=== PATIENT | female | born 1940 | race Caucasian/White ===

== ENCOUNTER → 2018-08-07 | Outpatient (CLI) | payer MEDICARE, BC ==
[2018-08-07 15:25] LABS: HCT 46.2 % (34.0-46.0); HGB 15.1 gm/dL (11.4-16.0); MCHC 32.6 g/dL (31.0-37.0); Mean Platelet Volume 7.3; Platelet Count 284 k/uL (150-450); RBC 5.19 m/uL (3.80-5.40); RDW 15.1 % (11.5-15.5)
[2018-08-07 15:34] LABS: Potassium 4.6 mmol/L (3.5-5.1)
== END | disposition home or self-care (01) ==
LOC: LABPAT 14:19
PROVIDERS: ATTEND Surgery
DX: Z01.812 Encounter for preprocedural laboratory examination (principal); Z01.818 Encounter for other preprocedural examination; K57.90 Diverticulosis of intestine, part unspecified, without perforation or abscess without bleeding
CPT/HCPCS: 36415; 80051; 85027; 86850; 86900; 86901; 93005

== ENCOUNTER 2018-08-14 06:56 | Day surgery (SDC) | payer MEDICARE, BC ==
[~2018-08-14 06:56] MED LIST: LACTATED RINGERS 1,000 ML IV SCH; LIDOCAINE 1% 20 ML VIAL (10MG/ML) FOR IV START INTRADERMA PRN
[2018-08-14 07:14] VITALS: TEMP 97.9
[2018-08-14] MEDS ORDERED: LACTATED RINGERS 1,000 ML IV ONE ×2 (07:17)
[2018-08-14] MEDS ORDERED: LIDOCAINE 1% INJ 10MG/ML (20 ML MDV) ONE (07:48)
[2018-08-14] MEDS ORDERED: PROPOFOL 10 MG/ML 20 ML VIAL IV ONE (07:48)
--- NOTE | 2018-08-14 07:54 | P.GSHP ---
History of Present Illness H&P Date: 08/14/18 Chief Complaint: History of perforated diverticulitis This is a 69-year-old female who presents today for colonoscopy. Patient's previous history of perforated diverticulitis. She is scheduled for low anterior resection tomorrow. Past Medical History Past Medical History: Hypertension, Liver Disease Additional Past Medical History / Comment(s): RECENT BOUTS OF DIVERTICULITIES WITH RUPTURE & CT SCAN DRAINAGE. FEET TROUBLE (SPURS, BUNIONS) History of Any Multi-Drug Resistant Organisms: C-DIFF Date of last positivie culture/infection: APRIL 2018: NO CULTURE RESULTS, BUT PER DR. LANDEROS AND PER PATIENT. MDRO Source:: STOOL Past Surgical History: Appendectomy, Hysterectomy Additional Past Surgical History / Comment(s): PICC LINE FOR ANTIBIOTICS FOR DIVERTICULTIS. FEET SURGERY (SPURS) Past Anesthesia/Blood Transfusion Reactions: Postoperative Nausea & Vomiting (PONV) Past Psychological History: No Psychological Hx Reported Smoking Status: Former smoker Past Alcohol Use History: None Reported Additional Past Alcohol Use History / Comment(s): QUIT JUNE 27, 2018. SMOKED FOR 50 YEARS, 1.5 PPD. Past Drug Use History: None Reported - Past Family History Mother Family Medical History: Cancer Brother(s) Family Medical History: Cancer Medications and Allergies Home Medications Medication Instructions Recorded Confirmed Type Albuterol Nebulized [Ventolin 2.5 mg INHALATION RT-Q6H PRN 05/24/18 08/09/18 History Nebulized] Chlorthalidone 25 mg PO QAM 05/24/18 08/09/18 History Valsartan [Diovan] 160 mg PO BID 05/24/18 08/09/18 History traMADol HCL [traMADol HCL ER] 100 mg PO BID PRN 08/09/18 08/09/18 History Allergies Allergy/AdvReac Type Severity Reaction Status Date / Time No Known Allergies Allergy Verified 08/09/18 11:19 Surgical - Exam Vital Signs Temp Pulse Resp BP Pulse Ox 97.9 F 72 22 151/76 97 08/14/18 07:13 08/14/18 07:13 08/14/18 07:13 08/14/18 07:13 08/14/18 07:13 - General well developed, well nourished, no distress - Eyes PERRL - ENT normal pinna - Neck no masses - Respiratory normal expansion - Cardiovascular Rhythm: regular - Abdomen Abdomen: soft, non tender Assessment and Plan Assessment: History of perforated diverticula is. We'll perform colonoscopy.
--- NOTE | 2018-08-14 08:03 | P.OP ---
Date of Procedure: 08/14/18 Preoperative Diagnosis: Perforated diverticulitis Postoperative Diagnosis: Severe diverticulosis of sigmoid colon Rectal polyp Procedure(s) Performed: Colonoscopy Anesthesia: SELIN Surgeon: Cedrick Licea Pathology: other (Rectal polyp) Condition: stable Disposition: PACU Description of Procedure: The patient's placed on the endoscopy table in the lateral position. She received IV sedation. Digital rectal exam was performed which revealed no abnormalities. The flexible colonoscope was then placed patient anus and passed throughout the colon. Scope could not be passed beyond the sigmoid colon secondary to a very inflamed and scarred sigmoid colon. There was evidence of extensive diverticulosis.. Due to her previous history of perforated diverticulitis it was decided not to advance the scope to prevent injury to the colon. Scope was then withdrawn. In the rectum there was a sessile polyp. This removed with the cold forcep. Scope was withdrawn from patient.
[2018-08-14 08:10] VITALS: RESP 18
[2018-08-14 08:32] VITALS: BP 155/80; PULSE 66
== END 2018-08-14 08:37 | disposition home or self-care (01) ==
LOC: ORWHC2ENDO 06:56
PROVIDERS: ATTEND Surgery
DX: K57.30 Diverticulosis of large intestine without perforation or abscess without bleeding (principal); K62.1 Rectal polyp; I10 Essential (primary) hypertension; J45.909 Unspecified asthma, uncomplicated; K76.9 Liver disease, unspecified; Z87.891 Personal history of nicotine dependence; Z79.891 Long term (current) use of opiate analgesic; Z79.899 Other long term (current) drug therapy; Z90.710 Acquired absence of both cervix and uterus; Z80.9 Family history of malignant neoplasm, unspecified
CPT/HCPCS: 45331; 88305; J2001; J2704

== ENCOUNTER 2018-08-15 13:00 | Inpatient (IN) | payer MEDICARE, BC ==
--- NOTE | 2018-08-15 12:43 | P.GSHP ---
History of Present Illness H&P Date: 08/15/18 Chief Complaint: Diverticulitis This is a 69-year-old female with history of perforated diverticula is. Patient presents today for low anterior section. Patient aware the risk of colostomy. Past Medical History Past Medical History: Hypertension, Renal Disease Additional Past Medical History / Comment(s): CURRENT: SEVERAL BOUTS OF DIVERTICULITIS WITH RUPTURE AND CT DRAINAGE. (HAS BEEN AT [facility] AND [facility]). Right kidney stenosis. HISTORY OF "FEET" PROBLEM, BUNION. History of Any Multi-Drug Resistant Organisms: C-DIFF Date of last positivie culture/infection: APRIL 2018: NO BLOOD CULTURE, BUT MENTIONED IN DR. LANDEROS AND PER PATIENT. MDRO Source:: STOOL Past Surgical History: Appendectomy, Hysterectomy Additional Past Surgical History / Comment(s): PICC LINE FOR ANTIBIOTICS FOR DIVERTICULITIS. FEET SURGERY (SPURS). Past Anesthesia/Blood Transfusion Reactions: Postoperative Nausea & Vomiting (PONV) Past Psychological History: No Psychological Hx Reported Smoking Status: Former smoker Past Alcohol Use History: None Reported Additional Past Alcohol Use History / Comment(s): STOPPED SMOKING JUNE 27, 2018 SHE HAD A RESP INFECTION AND COULD NOT BREATH. SMOKED FOR OVER 50 YEARS, 1.5 PPD. Past Drug Use History: None Reported - Past Family History Mother Family Medical History: Cancer Brother(s) Family Medical History: Cancer Medications and Allergies Home Medications Medication Instructions Recorded Confirmed Type Albuterol Nebulized [Ventolin 2.5 mg INHALATION RT-Q6H PRN 05/24/18 08/15/18 History Nebulized] Chlorthalidone 25 mg PO QAM 05/24/18 08/15/18 History Valsartan [Diovan] 160 mg PO BID 05/24/18 08/15/18 History traMADol HCL [traMADol HCL ER] 100 mg PO BID PRN 08/09/18 08/15/18 History Allergies Allergy/AdvReac Type Severity Reaction Status Date / Time No Known Allergies Allergy Verified 08/15/18 11:18 Surgical - Exam Vital Signs Temp Pulse Resp BP Pulse Ox 98.6 F 75 16 156/75 96 08/15/18 11:23 08/15/18 11:23 08/15/18 11:23 08/15/18 11:23 08/15/18 11:23 - General well developed, well nourished, no distress - Eyes PERRL - ENT normal pinna - Neck no masses - Respiratory normal expansion - Cardiovascular Rhythm: regular - Abdomen Mild left lower quadrant tenderness Abdomen: soft Assessment and Plan Assessment: Diverticulitis We'll perform a low anterior resection.
[~2018-08-15 13:00] MED LIST changes: +ALVIMOPAN 12 MG CAPSULE PO ONE; +HEPARIN SODIUM,PORCINE 5,000 UNIT/ML 1 ML VIAL SQ ONE; +LACTATED RINGERS 1,000 ML IV ONE; -LACTATED RINGERS 1,000 ML IV SCH; +LIDOCAINE 1% 20 ML VIAL (10MG/ML) FOR IV START INTRADERMA ONE; -LIDOCAINE 1% 20 ML VIAL (10MG/ML) FOR IV START INTRADERMA PRN; +MIDAZOLAM (PF) 2 MG/2 ML VIAL IV ONE; +ONDANSETRON 4 MG/2 ML VIAL IVP ONE; +ceFAZolin IN SWFI 2 GM/20 ML SYRINGE IVP ONE; +metroNIDAZOLE-NS PMX 500 MG in SALINE 1 100ML.BAG IVPB ONE
[2018-08-15] MEDS ORDERED: ePHEDrine SULFATE/0.9% NACL/PF 50 MG/5 ML SYRINGE IV ONE (13:09)
[2018-08-15] MEDS ORDERED: METOPROLOL TARTRATE 5 MG/5 ML VIAL IVP ONE (13:09)
[2018-08-15] MEDS ORDERED: ROCURONIUM BROMIDE 10 MG/ML 10 ML VIAL IV ONE (13:09)
[2018-08-15] MEDS ORDERED: hydrALAZINE HCL 20 MG/ML 1 ML VIAL ONE (13:09)
[2018-08-15] MEDS ORDERED: SUCCINYLCHOLINE CHLORIDE 100 MG/5 ML SYR IV ONE (13:09)
[2018-08-15] MEDS ORDERED: PROPOFOL 10 MG/ML 20 ML VIAL IV ONE (13:09)
[2018-08-15] MEDS ORDERED: MIDAZOLAM 2 MG/2 ML VIAL ONE (13:09)
[2018-08-15] MEDS ORDERED: GLYCOPYRROLATE 0.2 MG/ML 2 ML VIAL ONE (13:09)
[2018-08-15] MEDS ORDERED: LIDOCAINE 1% INJ 10MG/ML (20 ML MDV) ONE (13:09)
[2018-08-15] MEDS ORDERED: fentaNYL (PF) 50 MCG/ML 2 ML AMP ONE (13:09)
[2018-08-15] MEDS ORDERED: NEOSTIGMINE 1 MG/ML 10 ML VIAL ONE (13:09)
[2018-08-15] MEDS ORDERED: LACTATED RINGERS 1,000 ML IV ONE (14:00)
[2018-08-15] MEDS ORDERED: BENZOCAINE/MENTHOL LOZENG 1 EACH LOZENGE MUCOUS MEM PRN (14:52)
--- NOTE | 2018-08-15 15:01 | P.OP ---
Date of Procedure: 08/15/18 Preoperative Diagnosis: Perforated diverticulitis Postoperative Diagnosis: History of perforated diverticulitis Procedure(s) Performed: Exploratory laparotomy Lysis of adhesions Takedown of splenic flexure Partial omentectomy Low anterior resection Anesthesia: SELIN Surgeon: Cedrick Licea Estimated Blood Loss (ml): 100 Pathology: other (Omentum, sigmoid colon) Disposition: PACU Description of Procedure: The patient's placed on the operating room in the supine position. He was she received general anesthesia. She was then placed in dorsal lithotomy position. Her abdomen was prepped and draped in usual sterile fashion. The abdomen was entered through low midline incision. The patient a previous low midline scar. There were adhesions noted. Approximately 15 minutes of operative time used to lyse adhesions and enter the abdomen. The Bookwalter tract placed a wound. The omentum was freed from the abdominal wall. A portion of omentum was transected and sent to pathology. This appeared to be ischemic. The left colon and sigmoid colon were then mobilized by dividing the white line of Toldt. The splenic flexure was taken down with electrocautery. The patient had previous perforated diverticulitis. There was significant scarring in the pelvis. This was lysed with sharp dissection. At this point a suitable spot on the distal transverse colon was found a enterotomy was made and the anvil for the 29 mm EEA stapler was placed the colon. The colon was then transected with a GI stapler. The enterotomy area was also transected with a GI stapler and removed. The mesentery of the bowel was then transected with the Enseal device. The dissection was taken down to the level of the proximal rectum. The rectum was then transected with the contour stapler. The left ureter was identified and preserved. At this point the EEA stapler was placed the patient's anus. The spike was driven through the rectal staple line. And then the anvil for the stapler was placed into the stapler. Stapler was then closed and fired. Stapler was removed 2 intact tissue rings were withdrawn. The anastomosis was checked under air insufflation with the rigid sigmoidoscope. There is no evidence of any extravasation. Pressure and pressure was maintained until air escaped around the anus. There is no evidence of any leak. This point the abdomen was irrigated there is no bleeding seen. The fascia was closed with clean instruments. All PDS suture was used to close the fascia. Skin was closed preethi. Patient top she will was sent to recovery in condition.
[2018-08-15] MEDS: HYDROmorphone 1 MG/ML 1 ML SYRINGE IVP ONE ×4 (15:05→17:57)
[2018-08-15] MEDS: fentaNYL (PF) 50 MCG/ML 2 ML AMP IVP ONE ×2 (15:16→15:27)
[2018-08-15] MEDS: MIDAZOLAM (PF) 2 MG/2 ML VIAL IVP ONE ×2 (15:35→16:09)
[2018-08-15 15:37] LABS: Basophils % (A) 0 %; Eosinophils # (A) 0.1 k/uL (0-0.7); Eosinophils % (A) 1 %; HCT 43.4 % (34.0-46.0); HGB 13.6 gm/dL (11.4-16.0); Lymphocytes # (A) 1.5 k/uL (1.0-4.8); Lymphocytes % (A) 11 %; MCH 28.5 pg (25.0-35.0); MCHC 31.4 g/dL (31.0-37.0); MCV 90.7 fL (80.0-100.0); Mean Platelet Volume 7.1; Monocytes # (A) 0.7 k/uL (0-1.0); Monocytes % (A) 5 %; Neutrophils # (A) 11.5 k/uL (1.3-7.7); Neutrophils % (A) 82 %; Platelet Count 254 k/uL (150-450); RBC 4.78 m/uL (3.80-5.40); RDW 15.1 % (11.5-15.5)
[2018-08-15] MEDS: MEPERIDINE 50 MG/ML SYRINGE IVP ONE ×4 (15:49→17:05)
[2018-08-15 15:53] LABS: Calcium 8.7 mg/dL (8.4-10.2); Potassium 3.7 mmol/L (3.5-5.1)
[2018-08-15] MEDS: MORPHINE SULFATE 2 MG/ML SYRINGE IVP PRN (20:37)
[2018-08-15] MEDS: FAMOTIDINE 20 MG/2 ML VIAL IV SCH (20:37)
[2018-08-15] MEDS: D5-0.45% NACL WITH KCL 20MEQ/L 1,000 ML IV SCH (21:09)
[2018-08-16] MEDS: MORPHINE SULFATE 2 MG/ML SYRINGE IVP PRN (00:12)
[2018-08-16] MEDS: ONDANSETRON 4 MG/2 ML VIAL IVP PRN ×3 (00:13→16:08)
[2018-08-16] MEDS ORDERED: ACETAMINOPHEN IV (For NPO) 1,000 MG in EMPTY BAG 1 BAG IVPB PRN (02:16)
[2018-08-16] MEDS: HYDROmorphone 1 MG/ML 1 ML SYRINGE IVP PRN ×4 (02:29→12:02)
[2018-08-16] MEDS: D5-0.45% NACL WITH KCL 20MEQ/L 1,000 ML IV SCH ×3 (05:10→19:34)
[2018-08-16] MEDS: FAMOTIDINE 20 MG/2 ML VIAL IV SCH ×2 (08:40→22:55)
[2018-08-16] MEDS: METOCLOPRAMIDE 5 MG/ML 2 ML VIAL IVP PRN ×2 (09:05→17:23)
[2018-08-16] MEDS ORDERED: traMADol 50 MG TAB PO PRN (14:14)
[2018-08-16] MEDS ORDERED: ALBUTEROL NEBULIZED 2.5 MG/3 ML INHALATION PRN (14:14)
[2018-08-16] MEDS: MORPHINE SULFATE 4 MG/ML SYRINGE IVP PRN ×3 (14:32→22:50)
[2018-08-16] MEDS: CHLORTHALIDONE 25 MG TAB PO SCH (14:33)
[2018-08-16] MEDS: PIPERACILLIN-TAZOBACTAM 3.375 GM in SODIUM CHLORIDE 0.9% 100 ML IVPB SCH ×2 (16:08→23:13)
[2018-08-16] MEDS: VALSARTAN 160 MG TAB PO SCH (16:09)
--- NOTE | 2018-08-16 17:19 | P.PN ---
Progress Note - Text Progress Note Date: 08/16/18 The patient's postoperative day 1 from low anterior resection for diverticulitis with history of abscess. She is in quite well. She's had some mild incisional pain. On exam her vital signs are stable. Her abdomen soft. Incision site is clean dry and intact. Patient will remain on clear liquids. We will advance her diet once her bowel function has returned.
--- NOTE | 2018-08-16 20:59 | CONS ---
CONSULTATION DATE OF SERVICE: 08/16/2018. REASON FOR CONSULTATION: 1. Medical management. 2. Chronic diverticulitis with leukocytosis. HISTORY OF PRESENT ILLNESS: The patient is a 77-year-old female well known to my service. This patient who did have a history of ruptured diverticulitis with peridiverticular abscess that has been treated with antibiotic therapy. Patient clinical course complicated by development of C difficile colitis. Afterwards apparently the patient did have another episode of diverticulitis for which the patient went to [facility], but did not require any surgical intervention. Subsequently the patient followed up in the office and expressed the desire for surgery to be done locally instead of going to [place]. The patient has been referred to Dr. Licea after evaluation took the patient to the OR yesterday and is status post low anterior resection. The patient tolerated the procedure. The patient has been complaining of pain in the abdominal area, mostly in the lower abdominal more of a dull aching pain, 5 to 6/10, and no radiation. He seemed to have shown slight improvement from yesterday. Has some dry retching, but no vomiting. The patient denies having headache. No chest pain. No shortness of breath. No cough. No nausea, vomiting. Has not passed any gas. No urinary symptoms. REVIEW OF SYSTEMS: Constitutional: Positive for weakness. Nose: Clear. Eyes no complaint. ENT no complaint. Respiratory no complaint. Cardiovascular no complaint. Genitourinary no complaint. Gastrointestinal: As per HPI. Musculoskeletal no clubbing deformity. Integumentary: No complaint. Psychological no complaint. Endocrine no complaint. Neurologic no complaint. PAST MEDICAL HISTORY: Hypertension, diverticulitis with peridiverticular abscess, C difficile colitis. PAST SURGICAL HISTORY: Appendectomy, hysterectomy, a CT-guided drainage of abdominal abscess and low anterior resection was done yesterday. SOCIAL HISTORY: Smoking, 50 pack-year smoking. No drinking or drug use. FAMILY HISTORY: No pertinent findings noticed. ALLERGIES: No known drug allergies. MEDICATIONS: Currently include the patient is on Tylenol, Ventolin, Xanax, Pepcid, Dilaudid, Reglan, morphine sulfate, Zofran, Zosyn, 160 mg twice a day. PHYSICAL EXAMINATION: Blood pressure is 117/78 with a pulse of 99, temperature 97.6. She is 97% on room air. General description is an elderly female up in the bed in no distress. No tachypnea or accessory muscle of respiration use. HEENT: Shows no pallor or scleral icterus. Oral mucosa membranes are dry. No pharyngeal erythema or thrush. Neck trachea central. No thyromegaly. Lungs unlabored breathing, clear to auscultation anteriorly. Heart S1, S2. Regular rate and rhythm. Abdomen soft, status post surgery. No guarding. No rigidity. Extremities are no edema of the feet. Skin examination: No rash or mass palpable. Neurological: Patient is awake, alert, oriented x3. Mood and affect normal. LABS: Done yesterday showing hemoglobin 13.5, white count of 14,000, BUN of 13, creatinine 0.76. DIAGNOSTIC IMPRESSION/PLAN: 1. Patient history of recurrent diverticulitis with peridiverticular abscess. The patient has been admitted to the hospital for management of infection. The patient completed the procedure yesterday. Complains of some postop abdominal pain though has improved from yesterday and some nausea. The patient will be continued on pain medication per surgery. The patient will be started on incentive spirometry and slowly will increase her activity. 2. Patient with hypertension. Blood pressure is slightly on the high side more likely because of the pain. She is on Diovan, she takes at home mg twice a day. We will add hydralazine as needed for systolic blood pressure more than 160. 3. Patient with history of recurrent diverticulitis with elevated white count. We will empirically add Zosyn 3.375, q.8 hours. 4. Deep vein thrombosis, gastrointestinal prophylaxis. 5. Will discuss with the surgeon. Thank you for this consultation. MMODL / IJN: [id number] /
[2018-08-17] MEDS: MORPHINE SULFATE 4 MG/ML SYRINGE IVP PRN ×5 (03:07→19:32)
[2018-08-17] MEDS: D5-0.45% NACL WITH KCL 20MEQ/L 1,000 ML IV SCH ×3 (05:00→19:33)
[2018-08-17 07:15] LABS: Basophils % (A) 0 %; Eosinophils # (A) 0.2 k/uL (0-0.7); Eosinophils % (A) 1 %; HCT 40.6 % (34.0-46.0); HGB 13.1 gm/dL (11.4-16.0); Lymphocytes # (A) 1.2 k/uL (1.0-4.8); Lymphocytes % (A) 10 %; MCH 28.6 pg (25.0-35.0); MCHC 32.4 g/dL (31.0-37.0); MCV 88.2 fL (80.0-100.0); Mean Platelet Volume 7.1; Monocytes % (A) 8 %; Neutrophils # (A) 9.6 k/uL (1.3-7.7); Neutrophils % (A) 79 %; Platelet Count 255 k/uL (150-450); RDW 14.8 % (11.5-15.5); WBC 12.1 k/uL (3.8-10.6)
[2018-08-17 07:34] LABS: Calcium 8.9 mg/dL (8.4-10.2); Potassium 3.9 mmol/L (3.5-5.1)
[2018-08-17] MEDS: FAMOTIDINE 20 MG/2 ML VIAL IV SCH (07:39)
[2018-08-17] MEDS: CHLORTHALIDONE 25 MG TAB PO SCH (07:39)
[2018-08-17] MEDS: VALSARTAN 160 MG TAB PO SCH ×2 (07:39→19:33)
[2018-08-17] MEDS: ENOXAPARIN 40 MG/0.4 ML SYRINGE SQ SCH (07:39)
[2018-08-17] MEDS: PIPERACILLIN-TAZOBACTAM 3.375 GM in SODIUM CHLORIDE 0.9% 100 ML IVPB SCH ×2 (07:40→15:41)
--- NOTE | 2018-08-17 12:40 | P.PN ---
Progress Note - Text Progress Note Date: 08/17/18 The patient is resting comfortably in her bed. She has some mild Chad incisional pain. She's had no significant bowel function. On exam her vital signs are stable. Her abdomen is soft. Incision site is clean dry tach. Status post low anterior resection. Patient will continue clear liquids until her bowel function returns.
[2018-08-17] MEDS: ONDANSETRON 4 MG/2 ML VIAL IVP PRN (14:42)
[2018-08-17] MEDS: amLODIPine 5 MG TAB PO SCH (14:43)
[2018-08-17] MEDS ORDERED: ACETAMINOPHEN TAB 500 MG TAB PO PRN (15:07)
--- NOTE | 2018-08-17 15:35 | PN ---
PROGRESS NOTE DATE OF SERVICE: 08/17/2018 REASON FOR FOLLOWUP: 1. Leukocytosis chronic diverticulitis and anterior infection. 2. Hypertension, uncontrolled. 3. Postoperative pain. INTERVAL HISTORY: The patient is currently afebrile. The patient has been breathing comfortably. The patient has been complaining of abdominal pain, but no worsening. Some nausea but no vomiting. No chest pain, shortness of breath or cough. PHYSICAL EXAMINATION: Her blood pressure is 163/79 with a pulse of 94, temperature 98.1. She is 92% on 2 L nasal cannula. General description is an elderly female up in the bed in no distress. RESPIRATORY SYSTEM: Unlabored breathing with decreased breath sounds at the base. No wheeze. HEART: S1, S2. Regular rate and rhythm. ABDOMEN: Soft. Mild tenderness. No guarding or rigidity. EXTREMITIES: No edema of the feet. LABS: Hemoglobin is 13.1, white count 12.1 with a BUN of 11, creatinine 0.82. DIAGNOSTIC IMPRESSION AND PLAN: 1. Patient with recurrent diverticulitis, status post low anterior resection. Postoperatively the patient's pain is currently managed by Surgery and currently controlled. The patient has been started on incentive spirometry. Continue with Lovenox for DVT prophylaxis. 2. Patient with hypertension. Blood pressure is slightly on the high side. Continue with Diovan, however. Add low-dose amlodipine. 3. Elevated white count possible abdominal source in this patient with history of recurrent diverticulitis. Zosyn has been added. White count showing downward trend. 4. Deep venous thrombosis and gastrointestinal prophylaxis. MMODL / IJN: [id number] / MTDD
[2018-08-17] MEDS: METOCLOPRAMIDE 5 MG/ML 2 ML VIAL IVP PRN ×2 (17:33→22:44)
[2018-08-17] MEDS: FAMOTIDINE 20 MG TAB PO SCH (19:33)
[2018-08-17] MEDS: ALPRAZolam 0.25 MG TAB PO PRN (22:47)
[2018-08-17] MEDS ORDERED: hydrALAZINE HCL 20 MG/ML 1 ML VIAL IVP PRN (23:38)
[2018-08-18] MEDS: PIPERACILLIN-TAZOBACTAM 3.375 GM in SODIUM CHLORIDE 0.9% 100 ML IVPB SCH ×3 (00:09→16:07)
[2018-08-18] MEDS: MORPHINE SULFATE 4 MG/ML SYRINGE IVP PRN ×6 (00:09→21:24)
[2018-08-18] MEDS: D5-0.45% NACL WITH KCL 20MEQ/L 1,000 ML IV SCH ×3 (03:07→20:10)
[2018-08-18] MEDS: METOCLOPRAMIDE 5 MG/ML 2 ML VIAL IVP PRN ×3 (04:14→20:09)
[2018-08-18 07:43] LABS: Basophils % (A) 0 %; Eosinophils # (A) 0.1 k/uL (0-0.7); Eosinophils % (A) 1 %; HCT 45.3 % (34.0-46.0); HGB 14.7 gm/dL (11.4-16.0); Lymphocytes # (A) 1.1 k/uL (1.0-4.8); Lymphocytes % (A) 10 %; MCH 28.6 pg (25.0-35.0); MCHC 32.4 g/dL (31.0-37.0); MCV 88.4 fL (80.0-100.0); Mean Platelet Volume 7.3; Monocytes # (A) 0.9 k/uL (0-1.0); Monocytes % (A) 8 %; Neutrophils # (A) 8.9 k/uL (1.3-7.7); Neutrophils % (A) 80 %; Platelet Count 273 k/uL (150-450); RBC 5.12 m/uL (3.80-5.40); RDW 15.5 % (11.5-15.5); WBC 11.2 k/uL (3.8-10.6)
[2018-08-18] MEDS: CHLORTHALIDONE 25 MG TAB PO SCH (08:13)
[2018-08-18] MEDS: amLODIPine 5 MG TAB PO SCH (08:13)
[2018-08-18] MEDS: FAMOTIDINE 20 MG TAB PO SCH ×2 (08:13→20:10)
[2018-08-18 08:20] LABS: Calcium 9.1 mg/dL (8.4-10.2); Potassium 4.4 mmol/L (3.5-5.1)
[2018-08-18] MEDS: VALSARTAN 160 MG TAB PO SCH ×2 (08:22→20:10)
[2018-08-18] MEDS: ONDANSETRON 4 MG/2 ML VIAL IVP PRN (08:27)
[2018-08-18] MEDS: ENOXAPARIN 40 MG/0.4 ML SYRINGE SQ SCH (08:27)
--- NOTE | 2018-08-18 10:45 | P.PN ---
Progress Note - Text Progress Note Date: 08/18/18 The patient has some complaints of incisional pain. She's had no significant flatus. On exam her vital signs are stable. Her abdomen soft. Incision site is clean dry and intact. Status post low anterior resection for diverticulitis. Patient will remain on clear liquid diet.
[2018-08-18] MEDS: ALPRAZolam 0.25 MG TAB PO PRN (19:11)
--- NOTE | 2018-08-18 20:48 | P.PN ---
Progress Note - Text Progress Note Date: 08/18/18 REASON FOR FOLLOWUP: 1. Leukocytosis chronic diverticulitis and anterior infection. 2. Hypertension, uncontrolled. 3. Postoperative pain. INTERVAL HISTORY: The patient remains to be afebrile. The patient has been breathing comfortably. The patient abdominal pain has improved, some nausea but no vomiting tolerating a clear liquid diet PHYSICAL EXAMINATION: Her blood pressure is 132/68 with a pulse of 85 temperature 98.1. She is 92% on room air General description is an elderly female up in the bed in no distress. RESPIRATORY SYSTEM: Unlabored breathing with decreased breath sounds at the base. No wheeze. HEART: S1, S2. Regular rate and rhythm. ABDOMEN: Soft. Mild tenderness. No guarding or rigidity. EXTREMITIES: No edema of the feet. LABS: Hemoglobin is 13.1, white count 11.1 with a BUN of 11, creatinine 0.82. DIAGNOSTIC IMPRESSION AND PLAN: 1. Patient with recurrent diverticulitis, status post low anterior resection. Postoperatively the patient's pain is currently controlled. The patient has been instructed again on incentive spirometry. Slowly increase activity and discontinue the Parra catheter 2. Patient with hypertension. Blood pressure is currently normal Continue with Diovan and low-dose amlodipine. 3. Elevated white count possible abdominal source in this patient with history of recurrent diverticulitis. Patient to continue with Zosyn white count almost down to normal. 4. Deep venous thrombosis and gastrointestinal prophylaxis.
[2018-08-19] MEDS: PIPERACILLIN-TAZOBACTAM 3.375 GM in SODIUM CHLORIDE 0.9% 100 ML IVPB SCH ×4 (00:15→23:36)
[2018-08-19] MEDS: MORPHINE SULFATE 4 MG/ML SYRINGE IVP PRN ×5 (01:35→20:36)
[2018-08-19] MEDS: METOCLOPRAMIDE 5 MG/ML 2 ML VIAL IVP PRN ×3 (04:36→18:00)
[2018-08-19] MEDS: amLODIPine 5 MG TAB PO SCH (09:27)
[2018-08-19] MEDS: ONDANSETRON 4 MG/2 ML VIAL IVP PRN (09:28)
[2018-08-19] MEDS: ENOXAPARIN 40 MG/0.4 ML SYRINGE SQ SCH (09:28)
[2018-08-19] MEDS: VALSARTAN 160 MG TAB PO SCH ×2 (09:28→20:37)
[2018-08-19] MEDS: CHLORTHALIDONE 25 MG TAB PO SCH (09:28)
[2018-08-19] MEDS: FAMOTIDINE 20 MG TAB PO SCH ×2 (09:28→20:37)
[2018-08-19] MEDS: D5-0.45% NACL WITH KCL 20MEQ/L 1,000 ML IV SCH ×3 (10:07→19:52)
[2018-08-19] MEDS: MORPHINE SULFATE 2 MG/ML SYRINGE IVP PRN (12:09)
--- NOTE | 2018-08-19 12:34 | PN ---
PROGRESS NOTE DATE OF SERVICE: 08/19/2018. REASON FOR FOLLOWUP: 1. Recurrent diverticulitis, status post low anterior resection. 2. Hypertension. 3. Postop pain. INTERVAL HISTORY: The patient is currently afebrile. The patient is complaining of abdominal pain, though controlled with pain medication patient is currently receiving. Still on a clear liquid diet. The patient has been tolerating. No nausea or vomiting. Denies any chest pain or shortness of breath. No cough. Did not have any bowel movement. PHYSICAL EXAMINATION: Blood pressure 136/55 with a pulse of 80, temperature 97.8. She is 92% on room air. General description is an elderly female up in the bed in no distress. Respiratory system unlabored breathing, clear to auscultation. HEART: S1, S2. Regular rate and rhythm. ABDOMEN: Soft, no tenderness. Extremities: No edema of the feet. LABS: No new labs have been obtained today. DIAGNOSTIC IMPRESSION/PLAN: 1. Patient with recurrent diverticulitis and abscess, status post low anterior resection. Patient did have elevated white count for which the patient is currently on Zosyn. White count did show downward trend we will repeat CBC in the a.m. Patient advised to continue with incentive spirometry. Slowly increase activity and discontinue the Parra catheter. 2. Patient with hypertension, blood pressure is currently well controlled with amlodipine and Diovan. 3. Deep vein thrombosis, gastrointestinal prophylaxis. MMODL / IJN: [id number] /
[2018-08-19 12:49] VITALS: BMI 23.2
--- NOTE | 2018-08-19 13:05 | P.PN ---
Progress Note - Text Progress Note Date: 08/19/18 The patient has some complaints of incisional pain. She's had some minimal flatus. On exam her vital signs are stable. Her abdomen is soft. Incision site is clean dry intact. Status post sigmoid [place]. Patient may not clear liquids. We will advance her diet once her bowel function has improved..
[2018-08-19] MEDS: ALPRAZolam 0.25 MG TAB PO PRN (18:04)
[2018-08-20] MEDS: MORPHINE SULFATE 2 MG/ML SYRINGE IVP PRN ×2 (00:17→23:20)
[2018-08-20] MEDS: METOCLOPRAMIDE 5 MG/ML 2 ML VIAL IVP PRN ×2 (00:17→07:29)
[2018-08-20] MEDS: D5-0.45% NACL WITH KCL 20MEQ/L 1,000 ML IV SCH ×3 (03:25→20:13)
[2018-08-20] MEDS: ONDANSETRON 4 MG/2 ML VIAL IVP PRN (03:25)
[2018-08-20] MEDS: CHLORTHALIDONE 25 MG TAB PO SCH (07:34)
[2018-08-20] MEDS: amLODIPine 5 MG TAB PO SCH (07:34)
[2018-08-20] MEDS: FAMOTIDINE 20 MG TAB PO SCH ×2 (07:34→20:13)
[2018-08-20] MEDS: PIPERACILLIN-TAZOBACTAM 3.375 GM in SODIUM CHLORIDE 0.9% 100 ML IVPB SCH ×3 (07:34→23:19)
[2018-08-20] MEDS: ENOXAPARIN 40 MG/0.4 ML SYRINGE SQ SCH (07:35)
[2018-08-20] MEDS: METOCLOPRAMIDE 5 MG/ML 2 ML VIAL IVP SCH ×3 (09:11→20:13)
[2018-08-20 09:27] LABS: Calcium 8.9 mg/dL (8.4-10.2)
[2018-08-20 09:31] LABS: Potassium 4.7 mmol/L (3.5-5.1)
[2018-08-20 09:37] LABS: Basophils % (A) 0 %; Eosinophils # (A) 0.2 k/uL (0-0.7); Eosinophils % (A) 2 %; HGB 15.2 gm/dL (11.4-16.0); Lymphocytes % (A) 11 %; MCH 28.4 pg (25.0-35.0); MCHC 32.3 g/dL (31.0-37.0); MCV 88.1 fL (80.0-100.0); Mean Platelet Volume 8.1; Monocytes % (A) 10 %; Neutrophils # (A) 7.4 k/uL (1.3-7.7); Neutrophils % (A) 76 %; Platelet Count 315 k/uL (150-450); RBC 5.34 m/uL (3.80-5.40); RDW 15.3 % (11.5-15.5); WBC 9.8 k/uL (3.8-10.6)
[2018-08-20] MEDS: VALSARTAN 160 MG TAB PO SCH ×2 (10:40→20:13)
[2018-08-20] MEDS: ALPRAZolam 0.25 MG TAB PO PRN ×2 (10:41→20:13)
--- NOTE | 2018-08-20 11:14 | P.PN ---
<Lena Caicedo Benedict - Last Filed: 08/20/18 11:08> Subjective Progress Note Date: 08/20/18 CHIEF COMPLAINT: Diverticulitis HISTORY OF PRESENT ILLNESS: Patient is status post exploratory laparotomy, lysis of adhesions, partial omentectomy, and low anterior resection performed on 08/15/2018. Patient examined this morning. She is sitting in the chair. She reports persistent nausea. She did not attempt to have any liquids this morning. She states she has been ambulating to the bathroom. Patient was encouraged to ambulate in the hallway today. Using incentive spirometry. Able to pull 1000 mL. She denies passing flatus or having a bowel movement. WBC 9.8. Hemoglobin 15.2. PHYSICAL EXAM: VITAL SIGNS: Reviewed. GENERAL: Well-developed in no acute distress. HEENT: No sclera icterus. Extraocular movements grossly intact. Moist buccal mucosa. Head is atraumatic, normocephalic. ABDOMEN: Soft. Mild distention. Hypoactive bowel sounds. Dressing intact. NEUROLOGIC: Alert and oriented. Cranial nerves II through XII grossly intact. ASSESSMENT: 1. Diverticulitis, status post exploratory laparotomy, lysis of adhesions, and low anterior resection 2. Postoperative ileus PLAN: 1. Begin Reglan 10mg IV Q6 hours 2. Nausea likely secondary to ileus. Continue antiemetics. Patient encouraged to ambulate in the hallways today. 3. No advancement of diet until nausea improves and patient has return of bowel function 4. Pain control 5. Incentive spirometry Nurse practitioner note has been reviewed by physician. Signing provider agrees with the documented findings, assessment, and plan of care. Objective - Vital Signs Vital signs: Vital Signs Temp 98.2 F 08/20/18 07:00 Pulse 72 08/20/18 07:00 Resp 12 08/20/18 07:00 BP 155/70 08/20/18 07:00 Pulse Ox 94 L 08/20/18 07:00 Intake & Output 08/19/18 08/20/18 08/20/18 18:59 06:59 18:59 Intake Total 400 1450 Output Total 1100 900 Balance -700 550 Weight 65.317 kg Intake: Intake, IV Titration 1050 Amount D5-0.45% NaCl with KCl 850 20Meq/l 1,000 ml @ 125 mls/hr IV .Q8H [facility] Rx#: [id number] Piperacillin-Tazobactam 3 200 .375 gm In Sodium Chloride 0.9% 100 ml @ 25 mls/hr IVPB Q8HR [facility] Rx# :[id number] Oral 400 400 Output: Urine 1100 900 Uretheral (Parra) 1100 Other: Voiding Method Indwelling Catheter Toilet # Voids 2 - Labs CBC & Chem 7: 08/20/18 07:49 08/20/18 07:49 Labs: Abnormal Lab Results - Last 24 Hours (Table) 08/20/18 08/20/18 Range/Units 07:49 07:49 Hct 47.0 H (34.0-46.0) % Sodium 131 L (137-145) mmol/L Chloride 97 L (98-107) mmol/L Glucose 146 H (74-99) mg/dL <Modesto Lucas - Last Filed: 08/20/18 17:31> Subjective As above. Patient feels bloated. No vomiting. Mild nausea. No flatus or bowel movement. Abdomen with mild distention. Discussed options of nasogastric tube. Patient is not interested at this time. We agreed that if emesis occurred nasogastric tube would be placed at that time. Switch to nothing by mouth for now. Objective - Vital Signs Vital signs: Vital Signs Temp 97.3 F L 08/20/18 15:17 Pulse 78 08/20/18 15:17 Resp 12 08/20/18 07:00 BP 116/67 08/20/18 15:17 Pulse Ox 94 L 08/20/18 15:17 Intake & Output 08/19/18 08/20/18 08/20/18 18:59 06:59 18:59 Intake Total 400 1450 980 Output Total 1100 900 Balance -700 550 980 Weight 65.317 kg Intake: Intake, IV Titration 1050 800 Amount D5-0.45% NaCl with KCl 850 800 20Meq/l 1,000 ml @ 125 mls/hr IV .Q8H [facility] Rx#: [id number] Piperacillin-Tazobactam 3 200 .375 gm In Sodium Chloride 0.9% 100 ml @ 25 mls/hr IVPB Q8HR [facility] Rx# :[id number] Oral 400 400 180 Output: Urine 1100 900 Uretheral (Parra) 1100 Other: Voiding Method Indwelling Catheter Toilet # Voids 2 3 - Labs CBC & Chem 7: 08/20/18 07:49 08/20/18 07:49 Labs: Abnormal Lab Results - Last 24 Hours (Table) 08/20/18 08/20/18 Range/Units 07:49 07:49 Hct 47.0 H (34.0-46.0) % Sodium 131 L (137-145) mmol/L Chloride 97 L (98-107) mmol/L Glucose 146 H (74-99) mg/dL
[2018-08-20] MEDS: MORPHINE SULFATE 4 MG/ML SYRINGE IVP PRN ×3 (12:23→21:46)
[2018-08-21] MEDS: D5-0.45% NACL WITH KCL 20MEQ/L 1,000 ML IV SCH ×2 (03:17→10:32)
[2018-08-21] MEDS: MORPHINE SULFATE 4 MG/ML SYRINGE IVP PRN ×5 (03:45→21:52)
[2018-08-21] MEDS: METOCLOPRAMIDE 5 MG/ML 2 ML VIAL IVP SCH ×4 (03:46→21:53)
[2018-08-21] MEDS: ENOXAPARIN 40 MG/0.4 ML SYRINGE SQ SCH (07:40)
[2018-08-21] MEDS: PIPERACILLIN-TAZOBACTAM 3.375 GM in SODIUM CHLORIDE 0.9% 100 ML IVPB SCH ×2 (07:41→16:48)
[2018-08-21] MEDS: VALSARTAN 160 MG TAB PO SCH ×2 (07:41→21:53)
[2018-08-21] MEDS: FAMOTIDINE 20 MG TAB PO SCH ×2 (07:41→21:53)
[2018-08-21] MEDS: amLODIPine 5 MG TAB PO SCH (07:41)
[2018-08-21] MEDS: CHLORTHALIDONE 25 MG TAB PO SCH (07:41)
--- NOTE | 2018-08-21 12:08 | P.PN ---
<Lena Caicedo Benedict - Last Filed: 08/21/18 12:05> Subjective Progress Note Date: 08/21/18 CHIEF COMPLAINT: Diverticulitis HISTORY OF PRESENT ILLNESS: Patient is status post exploratory laparotomy, lysis of adhesions, partial omentectomy, and low anterior resection performed on 08/15/2018. Patient examined this morning. She is sitting in the chair. She reports passing flatus a few times this morning. She does continue to belch as well. She reports improvement in her nausea. She states her pain this morning is tolerable and feels she is having most gas pains. Using incentive spirometry. Able to pull 1000 mL. PHYSICAL EXAM: VITAL SIGNS: Reviewed. GENERAL: Well-developed in no acute distress. HEENT: No sclera icterus. Extraocular movements grossly intact. Moist buccal mucosa. Head is atraumatic, normocephalic. ABDOMEN: Soft. Mild distention. Hypoactive bowel sounds. Dressing intact. NEUROLOGIC: Alert and oriented. Cranial nerves II through XII grossly intact. ASSESSMENT: 1. Diverticulitis, status post exploratory laparotomy, lysis of adhesions, and low anterior resection 2. Postoperative ileus PLAN: 1. Continue Reglan 10mg IV Q6 hours 2. Continue antiemetics. Patient encouraged to ambulate in the hallways today. 3. Patient may have ice chips and a few sips of water. No further advancement of diet until patient passes more flatus and nausea resolves. 4. Pain control 5. Incentive spirometry Nurse practitioner note has been reviewed by physician. Signing provider agrees with the documented findings, assessment, and plan of care. Objective - Vital Signs Vital signs: Vital Signs Temp 97.3 F L 08/21/18 08:00 Pulse 82 08/21/18 08:00 Resp 16 08/21/18 08:00 BP 132/83 08/21/18 08:00 Pulse Ox 94 L 08/21/18 08:00 Intake & Output 08/20/18 08/21/18 08/21/18 18:59 06:59 18:59 Intake Total 980 1625 Balance 980 1625 Intake: Intake, IV Titration 800 1575 Amount D5-0.45% NaCl with KCl 800 1375 20Meq/l 1,000 ml @ 125 mls/hr IV .Q8H [facility] Rx#: [id number] Piperacillin-Tazobactam 3 200 .375 gm In Sodium Chloride 0.9% 100 ml @ 25 mls/hr IVPB Q8HR [facility] Rx# :[id number] Oral 180 50 Other: Voiding Method Toilet # Voids 3 2 - Labs CBC & Chem 7: 08/20/18 07:49 08/20/18 07:49 <ShayyModesto - Last Filed: 08/21/18 17:11> Subjective As above. Patient doing well today. She is passing flatus now. Still belching somewhat. She would like something to eat. She is feeling hungry. She has had 4 episodes of flatus. Small amount of stool with 1 episode. We'll start clears. Objective - Vital Signs Vital signs: Vital Signs Temp 97 F L 08/21/18 15:00 Pulse 72 08/21/18 15:00 Resp 17 08/21/18 15:00 BP 96/57 08/21/18 15:00 Pulse Ox 92 L 08/21/18 15:00 Intake & Output 08/20/18 08/21/18 08/21/18 18:59 06:59 18:59 Intake Total 980 1625 50 Balance 980 1625 50 Intake: Intake, IV Titration 800 1575 Amount D5-0.45% NaCl with KCl 800 1375 20Meq/l 1,000 ml @ 125 mls/hr IV .Q8H [facility] Rx#: [id number] Piperacillin-Tazobactam 3 200 .375 gm In Sodium Chloride 0.9% 100 ml @ 25 mls/hr IVPB Q8HR [facility] Rx# :[id number] Oral 180 50 50 Other: Voiding Method Toilet # Voids 3 2 3 - Labs CBC & Chem 7: 08/20/18 07:49 08/20/18 07:49
--- NOTE | 2018-08-21 13:57 | PN ---
PROGRESS NOTE DATE OF SERVICE: 08/21/2018 REASON FOR FOLLOWUP: 1. Recurrent diverticulitis, status post low anterior resection. 2. Hypertension. INTERVAL HISTORY: The patient is currently afebrile. Patient has been feeling slightly better. The patient has positive gas. Abdominal pain has improved. No nausea, vomiting. No chest pain or shortness of breath or cough. PHYSICAL EXAMINATION: Blood pressure 132/83 with a pulse of 82, temperature 97.3. She is 94% on 2 L. General description is an elderly female, up in the bed in no distress. RESPIRATORY SYSTEM: Unlabored breathing with decreased breath sounds at the bases, no wheeze. HEART: S1, S2. Regular rate and rhythm. ABDOMEN: Soft, no tenderness. EXTREMITIES: No edema of the feet. LABS: No new labs have been obtained. White count normal at 9.8 as of yesterday. DIAGNOSTIC IMPRESSION AND PLAN: 1. Patient with recurrent diverticulitis and diverticular abscess, status post low anterior resection. Patient did have elevated white count, currently on Zosyn with switch to oral antibiotic on discharge. 2. Postoperative ileus, slowly improving, resolving. The patient's pain is currently controlled. Continue with deep venous thrombosis prophylaxis and advised to increase her activity. 3. Hypertension. Blood pressure stable, to continue with Diovan, amlodipine. MMODL / IJN: [id number] /
[2018-08-21] MEDS: ALPRAZolam 0.25 MG TAB PO PRN (14:32)
[2018-08-22] MEDS ORDERED: MORPHINE SULFATE 2 MG/ML SYRINGE ONE (01:45)
[2018-08-22] MEDS ORDERED: METOCLOPRAMIDE 5 MG/ML 2 ML VIAL ONE (01:45)
[2018-08-22] MEDS ORDERED: MORPHINE SULFATE 4 MG/ML SYRINGE ONE (01:45)
[2018-08-22] MEDS: D5-0.45% NACL WITH KCL 20MEQ/L 1,000 ML IV SCH ×4 (05:13→17:18)
[2018-08-22] MEDS: METOCLOPRAMIDE 5 MG/ML 2 ML VIAL IVP SCH ×4 (05:13→20:06)
[2018-08-22] MEDS: PIPERACILLIN-TAZOBACTAM 3.375 GM in SODIUM CHLORIDE 0.9% 100 ML IVPB SCH ×2 (05:14→08:40)
[2018-08-22] MEDS: CHLORTHALIDONE 25 MG TAB PO SCH (08:07)
[2018-08-22] MEDS: amLODIPine 5 MG TAB PO SCH (08:07)
[2018-08-22] MEDS: FAMOTIDINE 20 MG TAB PO SCH ×2 (08:07→20:07)
[2018-08-22] MEDS: VALSARTAN 160 MG TAB PO SCH ×2 (08:07→20:07)
[2018-08-22] MEDS: ENOXAPARIN 40 MG/0.4 ML SYRINGE SQ SCH (08:07)
[2018-08-22] MEDS: MORPHINE SULFATE 2 MG/ML SYRINGE IVP PRN (08:40)
[2018-08-22] MEDS ORDERED: KETOROLAC 30 MG/ML 1 ML VIAL IVP PRN (08:49)
[2018-08-22] MEDS: HYDROcodone/APAP 5-325MG 1 EACH TAB PO PRN ×3 (11:05→20:07)
--- NOTE | 2018-08-22 11:41 | P.PN ---
<Lena Caicedo - Last Filed: 08/22/18 11:37> Subjective Progress Note Date: 08/22/18 CHIEF COMPLAINT: Diverticulitis HISTORY OF PRESENT ILLNESS: Patient is status post exploratory laparotomy, lysis of adhesions, partial omentectomy, and low anterior resection performed on 08/15/2018. Patient examined this morning. She is sitting in the chair. She is passing flatus and had a BM this morning. She is tolerating clear liquid diet but does not like any of the options on clear liquid tray and is requesting yogurt. Vital signs stable. She is afebrile. PHYSICAL EXAM: VITAL SIGNS: Reviewed. GENERAL: Well-developed in no acute distress. HEENT: No sclera icterus. Extraocular movements grossly intact. Moist buccal mucosa. Head is atraumatic, normocephalic. ABDOMEN: Soft. Mild distention. Positive bowel sounds. Dressing intact. NEUROLOGIC: Alert and oriented. Cranial nerves II through XII grossly intact. ASSESSMENT: 1. Diverticulitis, status post exploratory laparotomy, lysis of adhesions, and low anterior resection 2. Postoperative ileus PLAN: 1. Continue Reglan 10mg IV Q6 hours 2. Continue antiemetics. 3. Increase activity. Patient encouraged to ambulate in the hallways today. PT/OT 3. Advance diet to full liquids as patient does not like clear liquid options 4. Pain control. Decrease IV narcotic use. Will add [place] and Toradol. 5. Incentive spirometry Nurse practitioner note has been reviewed by physician. Signing provider agrees with the documented findings, assessment, and plan of care. Objective - Vital Signs Vital signs: Vital Signs Temp 98.8 F 08/22/18 07:00 Pulse 75 08/22/18 07:33 Resp 16 08/22/18 07:33 BP 111/61 08/22/18 07:00 Pulse Ox 93 L 08/22/18 07:00 Intake & Output 08/21/18 08/22/18 08/22/18 18:59 06:59 18:59 Intake Total 50 120 Balance 50 120 Weight 65.317 kg Intake: Oral 50 120 Other: Voiding Method Toilet # Voids 3 3 - Labs CBC & Chem 7: 08/20/18 07:49 08/20/18 07:49 <[place] Lucas - Last Filed: 08/22/18 20:45> Subjective As above. Patient's bowel function appears to be improving. Advance diet to full liquids. Ambulate. Evaluate for discharge in am. Objective - Vital Signs Vital signs: Vital Signs Temp 98.7 F 08/22/18 19:05 Pulse 82 08/22/18 20:02 Resp 18 08/22/18 19:05 BP 150/72 08/22/18 20:02 Pulse Ox 95 08/22/18 19:05 Intake & Output 08/22/18 08/22/18 08/23/18 06:59 18:59 06:59 Intake Total 120 250 Balance 120 250 Weight 65.317 kg Intake: Oral 120 250 Other: Voiding Method Toilet # Voids 3 2 # Bowel Movements 1 - Labs CBC & Chem 7: 08/20/18 07:49 08/20/18 07:49
[2018-08-22] MEDS: ONDANSETRON 4 MG/2 ML VIAL IVP PRN ×2 (14:35→22:32)
--- NOTE | 2018-08-22 18:29 | PN ---
PROGRESS NOTE DATE OF SERVICE: 08/22/2018 REASON FOR FOLLOWUP: 1. Recurrent diverticulitis, status post low anterior resection. 2. Hypertension. INTERVAL HISTORY: The patient is currently afebrile. The patient has been feeling better, breathing comfortably. The patient's abdominal pain has improved. She did have a bowel movement and has been tolerating her diet. Complaining of weakness, though. No chest pain, shortness of breath or cough. PHYSICAL EXAMINATION: Blood pressure is 124/70 with a pulse of 80, temperature is 97.4. She is 96% on room air. General description is an elderly female up in the chair in no distress. RESPIRATORY SYSTEM: Unlabored breathing. Clear to auscultation anteriorly. HEART: S1, S2. Regular rate and rhythm. ABDOMEN: Soft. No tenderness. Incision is currently covered with an OR dressing, with no significant drainage. LABS: No new labs have been obtained today. DIAGNOSTIC IMPRESSION AND PLAN: 1. Patient with recurrent diverticulitis in this patient who is status post low anterior resection. The patient's pain is currently controlled. Improving overall postoperatively. To continue with incentive spirometry. Slowly increase her activity. 2. Hypertension. Blood pressure is stable. Continue with Diovan and amlodipine with . 3. DVT and GI prophylaxis. MMODL / IJN: [id number] /
[2018-08-22] MEDS: ALPRAZolam 0.25 MG TAB PO PRN (21:02)
[2018-08-23] MEDS: HYDROcodone/APAP 5-325MG 1 EACH TAB PO PRN ×6 (01:06→23:10)
[2018-08-23] MEDS: D5-0.45% NACL WITH KCL 20MEQ/L 1,000 ML IV SCH ×4 (01:07→22:13)
[2018-08-23] MEDS: METOCLOPRAMIDE 5 MG/ML 2 ML VIAL IVP SCH ×2 (01:07→09:40)
[2018-08-23] MEDS: FAMOTIDINE 20 MG TAB PO SCH ×2 (09:31→20:25)
[2018-08-23] MEDS: VALSARTAN 160 MG TAB PO SCH ×2 (09:31→20:25)
[2018-08-23] MEDS: amLODIPine 5 MG TAB PO SCH (09:31)
[2018-08-23] MEDS: ENOXAPARIN 40 MG/0.4 ML SYRINGE SQ SCH (09:31)
[2018-08-23] MEDS: CHLORTHALIDONE 25 MG TAB PO SCH (09:31)
[2018-08-23] MEDS: ONDANSETRON ODT 4 MG TAB PO PRN ×2 (10:29→19:05)
[2018-08-23] MEDS: ALPRAZolam 0.25 MG TAB PO PRN ×2 (10:30→20:25)
[2018-08-23] MEDS: CHOLESTYRAMINE (WITH SUGAR) 4 GM PACKET PO SCH ×2 (11:08→16:48)
--- NOTE | 2018-08-23 11:45 | P.PN ---
<Lena Caicedo - Last Filed: 08/23/18 11:42> Subjective Progress Note Date: 08/23/18 CHIEF COMPLAINT: Diverticulitis HISTORY OF PRESENT ILLNESS: Patient is status post exploratory laparotomy, lysis of adhesions, partial omentectomy, and low anterior resection performed on 08/15/2018. Patient examined this morning. She is sitting in the chair. She is passing flatus and having multiple liquid stools. Nausea improving. Tolerating full liquid diet. Vital signs stable. Patient is afebrile. PHYSICAL EXAM: VITAL SIGNS: Reviewed. GENERAL: Well-developed in no acute distress. HEENT: No sclera icterus. Extraocular movements grossly intact. Moist buccal mucosa. Head is atraumatic, normocephalic. ABDOMEN: Soft. Nondistended. Positive bowel sounds. Dressing intact. NEUROLOGIC: Alert and oriented. Cranial nerves II through XII grossly intact. ASSESSMENT: 1. Diverticulitis, status post exploratory laparotomy, lysis of adhesions, and low anterior resection 2. Postoperative ileus, resolved PLAN: Discontinue Reglan. Advance diet to low fiber. Activity as tolerated. Pain control. Continue oral narcotics. Incentive spirometry. Patient is unsure if she feels ready for discharge today. She states she may need one more day. Will reevaluate patient this afternoon for possible discharge today versus tomorrow. Nurse practitioner note has been reviewed by physician. Signing provider agrees with the documented findings, assessment, and plan of care. Objective - Vital Signs Vital signs: Vital Signs Temp 97.6 F 08/23/18 07:14 Pulse 72 08/23/18 07:14 Resp 19 08/23/18 07:14 BP 121/70 08/23/18 07:14 Pulse Ox 92 L 08/23/18 07:14 Intake & Output 08/22/18 08/23/18 08/23/18 18:59 06:59 18:59 Intake Total 120 730 Balance 120 730 Weight 65.317 kg Intake: Oral 120 730 Other: Voiding Method Toilet Toilet Toilet # Voids 2 1 # Bowel Movements 1 1 - Labs CBC & Chem 7: 08/20/18 07:49 08/20/18 07:49 <[place] Lucas - Last Filed: 08/23/18 15:39> Subjective As above. Patient doing better. Some loose stools now. Agree with stopping Reglan. Advance diet. Possible discharge tomorrow. Objective - Vital Signs Vital signs: Vital Signs Temp 97.6 F 08/23/18 15:05 Pulse 77 08/23/18 15:05 Resp 18 08/23/18 15:05 BP 148/68 08/23/18 15:05 Pulse Ox 94 L 08/23/18 15:05 Intake & Output 08/22/18 08/23/18 08/23/18 18:59 06:59 18:59 Intake Total 120 730 860 Balance 120 730 860 Weight 65.317 kg Intake: Oral 120 730 860 Other: Voiding Method Toilet Toilet Toilet # Voids 2 1 # Bowel Movements 1 1 - Labs CBC & Chem 7: 08/20/18 07:49 08/20/18 07:49
--- NOTE | 2018-08-23 20:11 | PN ---
PROGRESS NOTE DATE OF SERVICE: 08/23/2018. REASON FOR FOLLOWUP: 1. Recurrent diverticulitis status post low anterior resection. 2. Diarrhea. 3. Hypertension. INTERVAL HISTORY: The patient is currently afebrile. The patient has been feeling better, getting more stronger. She has been complaining of diarrhea with multiple loose stools. Stool for C dif has been negative. Denies any chest pain or shortness of breath. No cough. No abdominal pain. PHYSICAL EXAMINATION: Blood pressure 148/63 with a pulse of 77, temperature 97.6. She is 94% on room air. General description is an elderly female up in the chair in no distress. Respiratory system: Unlabored breathing, clear to auscultation anteriorly. Heart S1, S2. Regular rate and rhythm. Abdomen soft, no tenderness. Extremities: No edema of the feet. LABS: No new labs have been obtained today. DIAGNOSTIC IMPRESSION/PLAN: 1. Patient with recurrent diverticulitis, status post low anterior resection. Postoperatively the patient is currently improving. Has been advised to increase activity. Continue incentive spirometry. 2. Diarrhea, possibly antibiotic associated. Stool for C difficile has been negative. Will improve as antibiotic has already been discontinued. We will add Questran for symptomatic relief. 3. Hypertension. Blood pressure stable to continue with Diovan and amlodipine. Continue supportive care. MMODL / IJN: [id number] /
[2018-08-24 01:33] VITALS: PULSE 71
[2018-08-24] MEDS: HYDROcodone/APAP 5-325MG 1 EACH TAB PO PRN ×2 (03:37→08:01)
[2018-08-24] MEDS: ENOXAPARIN 40 MG/0.4 ML SYRINGE SQ SCH (08:01)
[2018-08-24] MEDS: VALSARTAN 160 MG TAB PO SCH (08:02)
[2018-08-24] MEDS: CHLORTHALIDONE 25 MG TAB PO SCH (08:02)
[2018-08-24] MEDS: amLODIPine 5 MG TAB PO SCH (08:02)
[2018-08-24] MEDS: ONDANSETRON ODT 4 MG TAB PO PRN (08:02)
[2018-08-24] MEDS: FAMOTIDINE 20 MG TAB PO SCH (08:02)
[2018-08-24 08:29] VITALS: BP 135/72; RESP 15; TEMP 97.9
--- NOTE | 2018-08-24 09:39 | P.DS ---
<MariferAdamLena A - Last Filed: 08/24/18 09:36> Providers Expected date of discharge: 08/24/18 Hospital Course: 77 year old female who underwent exploratory laparotomy, lysis of adhesions, partial omentectomy, and low anterior resection performed on 08/15/2018. Patient is doing well postoperatively without any immediate complications. Patient did develop postoperative ileus which has since resolved. She is tolerating diet. Having bowel movements. Pain is controlled on oral medications. She is stable for discharge home today. Please see EMR for further hospital course details. Discharge diagnosis: 1. Diverticulitis, status post exploratory laparotomy, lysis of adhesions, and low anterior resection 2. Postoperative ileus, resolved Nurse practitioner note has been reviewed by physician. Signing provider agrees with the documented findings, assessment, and plan of care. Plan - Discharge Summary Discharge Rx Participant: No New Discharge Prescriptions: New Hydrocodone/Acetaminophen [[place] 5-325] 1 tab PO Q4HR PRN 3 Days #18 tab PRN Reason: Pain No Action Valsartan [Diovan] 160 mg PO BID Chlorthalidone 25 mg PO QAM Albuterol Nebulized [Ventolin Nebulized] 2.5 mg INHALATION RT-Q6H PRN PRN Reason: Shortness Of Breath traMADol HCL [Ultram] 100 mg PO BID PRN PRN Reason: Pain Discharge Medication List Albuterol Nebulized [Ventolin Nebulized] 2.5 mg INHALATION RT-Q6H PRN 05/24/18 [History] Chlorthalidone 25 mg PO QAM 05/24/18 [History] Valsartan [Diovan] 160 mg PO BID 05/24/18 [History] traMADol HCL [Ultram] 100 mg PO BID PRN 08/15/18 [History] Hydrocodone/Acetaminophen [[place] 5-325] 1 tab PO Q4HR PRN 3 Days #18 tab 08/23/18 [Rx] Follow up Appointment(s)/Referral(s): [facility], [NON-STAFF] - Cedrick Licea MD [STAFF PHYSICIAN] - 08/29/18 10:45 am Patient Instructions/Handouts: Diverticulitis (DC) Activity/Diet/Wound Care/Special Instructions: No driving while taking [place] No lifting over 10 pounds You may shower. No soaking or tub baths Very light activity until you are reevaluated at your follow up appointment with your surgeon Discharge Disposition: HOME SELF-CARE <[place] Lucas - Last Filed: 08/24/18 14:12> Providers Date of admission: 08/15/18 14:48 Attending physician: Cedrick Licea Consults: 08/15/18 14:52 Consult Physician Routine Consulting Provider: Didi Anaya Consult Reason/Comments: Medical management Do you want consulting provider notified?: Yes Primary care physician: Stated None Hospital Course: As above. Patient doing well. Was discharged prior to my arrival.
--- NOTE | 2018-08-24 12:07 | PN ---
PROGRESS NOTE DATE OF SERVICE: 08/24/2018. REASON FOR FOLLOWUP: 1. Recurrent diverticulitis, status post low anterior resection. 2. Diarrhea, antibiotic associated, improving. 3. Hypertension. INTERVAL HISTORY: The patient is currently afebrile. The patient has been feeling better. Breathing comfortably. The patient denies having any chest pain or cough. Abdominal pain has much improved and diarrhea has slowed down. PHYSICAL EXAMINATION: On examination, her blood pressure is 135/72 with a pulse of 71, temperature 97.9. She is 94% on room air. General description is an elderly female, lying in bed in no distress. RESPIRATORY SYSTEM: Unlabored breathing, clear to auscultation anteriorly. HEART: S1, S2. Regular rate and rhythm. ABDOMEN: Soft, no tenderness. LABS: No new labs have been obtained today. DIAGNOSTIC IMPRESSION AND PLAN: 1. Patient with recurrent diverticulitis, status post low anterior resection. Patient seemed to do well post surgery and will be discharged home today. Patient was to increase activity and no need for any systemic antibiotic on discharge. 2. Patient with antibiotic associated diarrhea resolved. Stool for Clostridium difficile is negative. She has been advised to increase her probiotic intake. The patient refused Questran. 3. Hypertension. Blood pressure stable, to continue with Diovan on discharge. MMODL / IJN: [id number] /
== END 2018-08-24 12:16 | disposition home health service (06) | DRG 330 ==
LOC: 4SSUR 14:48
PROVIDERS: ADMIT Surgery; ATTEND Surgery
PROC: 0DBU0ZZ Excision of Omentum, Open Approach (ICD-10-PCS; 2018-08-15)
PROC: 0DTN0ZZ Resection of Sigmoid Colon, Open Approach (ICD-10-PCS; principal; 2018-08-15 13:00)
DX: K57.20 Diverticulitis of large intestine with perforation and abscess without bleeding (principal); K52.1 Toxic gastroenteritis and colitis; K56.7 Ileus, unspecified; T36.95XA Adverse effect of unspecified systemic antibiotic, initial encounter; I10 Essential (primary) hypertension; Z87.891 Personal history of nicotine dependence; Z90.49 Acquired absence of other specified parts of digestive tract; Z90.710 Acquired absence of both cervix and uterus; Z80.9 Family history of malignant neoplasm, unspecified; Z87.19 Personal history of other diseases of the digestive system
CPT/HCPCS: 80048; 85025; 86850; 86900; 86901; 87324; 88305; 88307

== ENCOUNTER 2018-09-13 16:34 | Emergency (ER) | payer MEDICARE, BC ==
[2018-09-13 16:57] VITALS: TEMP 98.2
--- NOTE | 2018-09-13 17:29 | ED ---
General Adult HPI - General Chief complaint: Weakness Stated complaint: WEAKNESS Time Seen by Provider: 09/13/18 16:35 Source: EMS Mode of arrival: EMS Limitations: no limitations - History of Present Illness Initial comments: Dictation was produced using Swing by [employer] dictation software. please excuse any grammatical, word or spelling errors. Chief Complaint: 77-year-old female presents chief complaint of shortness of breath and weakness. History of Present Illness: 77-year-old female she presents today via EMS for shortness of breath. Patient states that she's been short of breath progressively for the last one week. Patient is 4 weeks out from diverticulitis surgery. She did have an anastomoses states that she short of breath especially with exertion. She does also report shortness of breath at rest. Patient den ies any chest pain. Patient states that she generally weak. She does not feel on asymmetrical weakness. The ROS documented in this emergency department record has been reviewed and confirmed by me. Those systems with pertinent positive or negative responses have been documented in the HPI. All other systems are other negative and/or noncontributory. PHYSICAL EXAM: General Impression: Alert and oriented x3, not in acute distress HEENT: Normocephalic atraumatic, extra-ocular movements intact, pupils equal and reactive to light bilaterally, mucous membranes moist. Cardiovascular: Heart regular rate and rhythm, S1&S2 audible, no murmurs, rubs or gallops Chest: Lungs clear to auscultation bilaterally, no rhonchi, no wheeze, no rales Abdomen: Bowel sounds present, abdomen soft, non-tender, non-distended, no organomegaly Musculoskeletal: Pulses present and equal in all extremities, no peripheral edema Motor: no focal deficits noted Neurological: CN II-XII grossly intact, no focal motor or sensory deficits noted Skin: Intact with no visualized rashes Psych: Normal affect and mood ED course: 77 yo female presents with generalized weakness and shortness of breath. Patient is postoperative and is concern for pulmonary emboli. As upon arrival are within acceptable limits. Physical examination is benign. Abdomen evaluation obtained. CBC is unremarkable. Coag panel unremarkable. Metabolic panel is unremarkable. Cardiac enzymes negative prematurity peptide is negative. CT angiogram of the chest was obtained showing no findings of pulmonary emboli. No other acute findings. Viet x-ray was obtained given that she had recent surgery. Abdominal x-rays unremarkable. She does have a high BUN to creatinine ratio. Patient states that she has poor by mouth intake. Patient's told that her symptoms may reflect dehydration. Patient given 500 mL of intravenous fluids. Still to continue hydration at home. Return parameters discussed. Patient told to follow up with primary care physician. EKG interpretation: Ventricular rate 82, normal sinus rhythm, TX interval 150, care is 126, QTC 444, right bundle branch block. No TX prolongation, no QTC prolongation, no ST or T-wave changes noted. EKG compared to 08/07/2018 showing no changes. Overall, this EKG is unremarkable - Related Data Home Medications Medication Instructions Recorded Confirmed Albuterol Nebulized [Ventolin 2.5 mg INHALATION RT-QID PRN 05/24/18 09/13/18 Nebulized] Chlorthalidone 25 mg PO QAM PRN 05/24/18 09/13/18 traMADol HCL [Ultram] 100 mg PO BID PRN 08/15/18 09/13/18 Ferrous Sulfate [Feosol] 325 mg PO DAILY 09/13/18 09/13/18 Valsartan 160 mg PO BID 09/13/18 09/13/18 Allergies Allergy/AdvReac Type Severity Reaction Status Date / Time propoxyphene [From Darvon] Allergy Anaphylaxis Verified 09/13/18 18:49 Review of Systems ROS Statement: Those systems with pertinent positive or pertinent negative responses have been documented in the HPI. ROS Other: All systems not noted in ROS Statement are negative. Past Medical History Past Medical History: Hypertension, Renal Disease Additional Past Medical History / Comment(s): CURRENT: SEVERAL BOUTS OF DIVERTIC ULITIS WITH RUPTURE AND CT DRAINAGE. (HAS BEEN AT [facility]). Right kidney stenosis. HISTORY OF "FEET" PROBLEM, BUNION. History of Any Multi-Drug Resistant Organisms: C-DIFF Date of last positivie culture/infection: APRIL 2018: NO BLOOD CULTURE, BUT MENTIONED IN DR. LANDEROS AND PER PATIENT. MDRO Source:: STOOL Past Surgical History: Appendectomy, Hysterectomy Additional Past Surgical History / Comment(s): PICC LINE FOR ANTIBIOTICS FOR DIVERTICULITIS. FEET SURGERY (SPURS). low ant resection Past Anesthesia/Blood Transfusion Reactions: Postoperative Nausea & Vomiting (PONV) Past Psychological History: No Psychological Hx Reported Smoking Status: Former smoker Past Alcohol Use History: None Reported Past Drug Use History: None Reported - Past Family History Mother Family Medical History: Cancer Brother(s) Family Medical History: Cancer General Exam Limitations: no limitations Course Vital Signs 09/13/18 09/13/18 16:54 19:03 Temperature 98.2 F Pulse Rate 77 70 Respiratory 16 16 Rate Blood Pressure 138/71 120/51 O2 Sat by Pulse 98 99 Oximetry Medical Decision Making - Lab Data Result diagrams: 09/13/18 16:45 09/13/18 16:45 Lab Results 09/13/18 09/13/18 09/13/18 Range/Units 16:45 16:45 16:45 WBC 8.5 (3.8-10.6) k/uL RBC 5.48 H (3.80-5.40) m/uL Hgb 14.8 (11.4-16.0) gm/dL Hct 47.1 H (34.0-46.0) % MCV 85.9 (80.0-100.0) fL MCH 27.0 (25.0-35.0) pg MCHC 31.4 (31.0-37.0) g/dL RDW 14.3 (11.5-15.5) % Plt Count 392 (150-450) k/uL Neutrophils % 78 % Lymphocytes % 11 % Monocytes % 7 % Eosinophils % 2 % Basophils % 0 % Neutrophils # 6.6 (1.3-7.7) k/uL Lymphocytes # 0.9 L (1.0-4.8) k/uL Monocytes # 0.6 (0-1.0) k/uL Eosinophils # 0.1 (0-0.7) k/uL Basophils # 0.0 (0-0.2) k/uL PT (9.0-12.0) sec INR (<1.2) Sodium 138 (137-145) mmol/L Potassium 4.2 (3.5-5.1) mmol/L Chloride 98 (98-107) mmol/L Carbon Dioxide 26 (22-30) mmol/L Anion Gap 14 mmol/L BUN 23 H (7-17) mg/dL Creatinine 0.82 (0.52-1.04) mg/dL Est GFR (CKD-EPI)AfAm 79 (>60 ml/min/1.73 sqM) Est GFR (CKD-EPI)NonAf 69 (>60 ml/min/1.73 sqM) Glucose 111 H (74-99) mg/dL Calcium 10.6 H (8.4-10.2) mg/dL Magnesium 2.0 (1.6-2.3) mg/dL Troponin I (0.000-0.034) ng/mL NT-Pro-B Natriuret Pep 107 pg/mL 09/13/18 09/13/18 Range/Units 16:45 16:45 WBC (3.8-10.6) k/uL RBC (3.80-5.40) m/uL Hgb (11.4-16.0) gm/dL Hct (34.0-46.0) % MCV (80.0-100.0) fL MCH (25.0-35.0) pg MCHC (31.0-37.0) g/dL RDW (11.5-15.5) % Plt Count (150-450) k/uL Neutrophils % % Lymphocytes % % Monocytes % % Eosinophils % % Basophils % % Neutrophils # (1.3-7.7) k/uL Lymphocytes # (1.0-4.8) k/uL Monocytes # (0-1.0) k/uL Eosinophils # (0-0.7) k/uL Basophils # (0-0.2) k/uL PT 10.0 (9.0-12.0) sec INR 0.9 (<1.2) Sodium (137-145) mmol/L Potassium (3.5-5.1) mmol/L Chloride (98-107) mmol/L Carbon Dioxide (22-30) mmol/L Anion Gap mmol/L BUN (7-17) mg/dL Creatinine (0.52-1.04) mg/dL Est GFR (CKD-EPI)AfAm (>60 ml/min/1.73 sqM) Est GFR (CKD-EPI)NonAf (>60 ml/min/1.73 sqM) Glucose (74-99) mg/dL Calcium (8.4-10.2) mg/dL Magnesium (1.6-2.3) mg/dL Troponin I <0.012 (0.000-0.034) ng/mL NT-Pro-B Natriuret Pep pg/mL Disposition Clinical Impression: Weakness Disposition: HOME SELF-CARE Condition: Good Instructions (If sedation given, give patient instructions): Dehydration (ED) Is patient prescribed a controlled substance at d/c from ED?: No Referrals: Giancarlo Calero MD [Primary Care Provider] - 1-2 days Time of Disposition: 19:07
[2018-09-13 17:44] LABS: Basophils % (A) 0 %; Eosinophils # (A) 0.1 k/uL (0-0.7); Eosinophils % (A) 2 %; HCT 47.1 % (34.0-46.0); HGB 14.8 gm/dL (11.4-16.0); Lymphocytes # (A) 0.9 k/uL (1.0-4.8); Lymphocytes % (A) 11 %; MCHC 31.4 g/dL (31.0-37.0); MCV 85.9 fL (80.0-100.0); Mean Platelet Volume 6.7; Monocytes # (A) 0.6 k/uL (0-1.0); Monocytes % (A) 7 %; Neutrophils # (A) 6.6 k/uL (1.3-7.7); Neutrophils % (A) 78 %; Platelet Count 392 k/uL (150-450); RBC 5.48 m/uL (3.80-5.40); RDW 14.3 % (11.5-15.5); WBC 8.5 k/uL (3.8-10.6)
[2018-09-13 18:02] LABS: INR 0.9 (<1.2)
[2018-09-13 18:11] LABS: Calcium 10.6 mg/dL (8.4-10.2); Potassium 4.2 mmol/L (3.5-5.1)
--- NOTE | 2018-09-13 18:22 | XR ---
EXAMINATION TYPE: XR abdomen 1V DATE OF EXAM: 09/13/2018 COMPARISON: NONE HISTORY: Weakness TECHNIQUE: 2 views FINDINGS: 2 upright views show no sign of intestinal obstruction or pneumoperitoneum. Fecal pattern i s normal. Lung bases are clear. There is mild lumbar dextroscoliosis. There are no calcifications ove r the kidneys. IMPRESSION: Nonacute abdomen.
--- NOTE | 2018-09-13 18:49 | CT ---
EXAMINATION TYPE: CT angio chest DATE OF EXAM: 09/13/2018 6:37 PM COMPARISON: None HISTORY: Weakness. CT DLP: 308.5 mGycm Automated exposure control for dose reduction was used. CONTRAST: CTA scan of the thorax is performed with IV Contrast, patient injected with 56ml mL of Isovue 370, pu lmonary embolism protocol. There are 3-D post processed images.. FINDINGS: There is bilateral enlarged thyroid gland. Superior mediastinum shows no adenopathy. Thoracic aorta i s atheromatous. There are paratracheal lymph nodes that measure up to 11 mm. There are no hilar niels s. There is normal contrast opacification of the pulmonary arteries. There are no filling defects. Th oracic aorta is atheromatous. There is no aneurysm or dissection. Descending aorta measures 3 cm. The re is mild thrombus in the lower thoracic aorta. There is 2 cm cyst in the right lobe of the liver. There is mild pulmonary emphysema. There is a 1.5 cm area of reticular mild infiltrate anterior segme nt right upper lobe. There is 4 mm pleural-based density lateral aspect of the superior segment left lower lobe. There is spurring in the thoracic spine. There is significant right renal atrophy. There is compensatory hypertrophy left kidney. IMPRESSION: NO EVIDENCE OF PULMONARY EMBOLISM. NONSPECIFIC MEDIASTINAL LYMPH NODES. ATHEROSCLEROTIC VASCULAR DISE ASE. EMPHYSEMA.
[2018-09-13] MEDS ORDERED: SODIUM CHLORIDE 0.9% 500 ML IV STA (18:58)
[2018-09-13 19:05] VITALS: BP 120/51
[2018-09-13 21:19] VITALS: PULSE 69; RESP 18
== END 2018-09-13 21:18 | disposition home or self-care (01) ==
LOC: EC 16:34
DX: R53.1 Weakness (principal); R06.02 Shortness of breath; I10 Essential (primary) hypertension; Z87.19 Personal history of other diseases of the digestive system; Z87.891 Personal history of nicotine dependence; Z90.49 Acquired absence of other specified parts of digestive tract; Z90.710 Acquired absence of both cervix and uterus; Z98.890 Other specified postprocedural states; Z79.899 Other long term (current) drug therapy; Z88.5 Allergy status to narcotic agent
CPT/HCPCS: 36415; 93005; 83880; 80048; 83735; 84484; 85025; 85610; 74018; 71275; 99285; 96360; 96361; Q9967

== ENCOUNTER → 2022-05-18 | Outpatient (CLI) | payer MEDICARE, BC ==
--- NOTE | 2022-05-19 09:43 | NM ---
EXAMINATION TYPE: NM thyroid image w uptake DATE OF EXAM: 05/19/2022 COMPARISON: NONE HISTORY: 81-year-old female E05.9. TECHNIQUE: Thyroid iodine uptake is calculated and images performed after the oral administration of 292 uCi 1-123 Capsule. FINDINGS: There is nodular distribution of activity within the thyroid gland. A warm nodules present at the left midpole and a nodule with increased activity is present at the right lower pole. Either a large cold nodule or decreased uptake at the right upper and midpole. Recommend further ultrasound e valuation. The 4 hour iodine uptake is calculated at low at 5.3% (normal range 8-14%). The patient was unable to return for the 24-hour uptake due to illness. IMPRESSION: 1. Examination could not be completed. The patient did not return for her 24 hour uptake measurement due to illness. The 4 hour uptake is low at 5% suggesting overall hypothyroidism. 2. Nodule with increased uptake suggested at the right lower pole. Possible warm nodule at the left m idpole. Either diminished uptake versus a large cold nodule at the right upper to mid pole. Recommend further ultrasound evaluation to assess criteria for FNA.
== END | disposition home or self-care (01) ==
LOC: RADNMMAIN 09:28
PROVIDERS: ATTEND Internal Medicine Endocrinology, Diabetes & Metabolism
DX: E05.90 Thyrotoxicosis, unspecified without thyrotoxic crisis or storm (principal)
CPT/HCPCS: 78014

== ENCOUNTER → 2023-10-05 | Outpatient (CLI) | payer MEDICARE, BC ==
--- NOTE | 2023-11-03 21:34 | US ---
Patient: Natasha Barragan Ordering Physician: Unknown, Unknown ID: [id number] Phone, Pager: Phone: N/A P ager: N/A : 1940 Age/Gender: 82Y, F Primary Location: N/A Procedure: US RENALS AND BLADDER [facility] Date: 10/05/2023 12:53:00 PM EXAMINATION TYPE: US renals and bladder DATE OF EXAM: 10/22/2023 COMPARISON: NONE CLINICAL INDICATION: MELE EXAM MEASUREMENTS: Right Kidney: 7.5 x 3.9 cm Left Kidney: 11.6 x 6.7 cm Right Kidney: No hydronephrosis or masses seen Left Kidney: No hydronephrosis or masses seen Bladder: wnl Bilateral Jets seen: No There is no evidence for hydronephrosis at this point in time. No nephrolithiasis is seen. No niels s are identified. The urinary bladder is anechoic. Bilateral ureteral jets are not visualized. IMPRESSION: 1. No evidence for obstructive uropathy. 2. Atrophic right kidney.
== END | disposition home or self-care (01) ==
LOC: RADUSWWP 12:00
PROVIDERS: ATTEND Internal Medicine Nephrology
CPT/HCPCS: 76770

== ENCOUNTER → 2023-10-05 | Outpatient (CLI) | payer MEDICARE, BC | END | disposition home or self-care (01) | LOC: LABPRL 01:24 | PROVIDERS: ATTEND Nurse Practitioner Family | DX: N18.30 Chronic kidney disease, stage 3 unspecified (principal) | CPT/HCPCS: 80053 ==

== ENCOUNTER → 2024-06-03 | Outpatient (CLI) | payer MEDICARE, BC ==
[2024-06-03 13:08] LABS: INR 0.9 (<1.2); Partial Thromboplastin Time 23.1 sec (22.0-30.0); Prothrombin Time 10.4 sec (10.0-12.5)
[2024-06-03 13:13] LABS: Basophils # (A) 0.05 10*3/uL (0.00-0.10); Basophils % (A) 0.6 %; Eosinophils # (A) 0.13 10*3/uL (0.04-0.35); Eosinophils % (A) 1.6 %; HCT 51.1 % (37.2-46.3); HGB 16.2 g/dL (12.0-15.0); Lymphocytes # (A) 1.31 10*3/uL (0.90-5.00); Lymphocytes % (A) 16.5 %; MCH 28.8 pg (27.0-32.0); MCHC 31.7 g/dL (32.0-37.0); MCV 90.9 fL (80.0-97.0); Mean Platelet Volume 9.8 fL (9.5-12.2); Monocytes # (A) 0.83 10*3/uL (0.20-1.00); Monocytes % (A) 10.4 %; Neutrophils # (A) 5.61 10*3/uL (1.80-7.70); Neutrophils % (A) 70.5 %; Platelet Count 243 10*3/uL (140-440); RBC 5.62 10*6/uL (4.10-5.20); RDW 15.2 % (11.5-14.5); WBC 7.96 10*3/uL (4.50-10.00)
[2024-06-03 15:23] LABS: ALT 11 U/L (8-44); AST 24 U/L (13-35); Albumin/Globulin Ratio 1.29 Ratio (1.60-3.17); Alkaline Phosphatase 77 U/L (41-126); Blood Urea Nitrogen 21.9 mg/dL (9.0-27.0); Calcium 9.7 mg/dL (8.7-10.3); Carbon Dioxide 26.4 mmol/L (21.6-31.8); Chloride 101 mmol/L (96-109); Globulin 3.1 g/dL (1.6-3.3); Glucose 101 mg/dL (70-110); Potassium 5.1 mmol/L (3.5-5.5); Sodium 139 mmol/L (135-145); Total Bilirubin 0.4 mg/dL (0.3-1.2); Total Protein 7.1 g/dL (6.2-8.2)
== END | disposition home or self-care (01) ==
LOC: LABPAT 11:53
PROVIDERS: ATTEND Thoracic Surgery (Cardiothoracic Vascular Surgery)
DX: Z01.812 Encounter for preprocedural laboratory examination (principal); I35.0 Nonrheumatic aortic (valve) stenosis; Z79.899 Other long term (current) drug therapy
CPT/HCPCS: 80053; 85025; 85610; 85730; 86850; 86900; 86901

== ENCOUNTER 2024-06-05 05:54 | Inpatient (IN) | payer MEDICARE, BC ==
[2024-06-05] MEDS ORDERED: ELECTROLYTE-A SOLUTION 1,000 ML with POTASSIUM CHLORIDE 100 MEQ, MAGNESIUM SULFATE 16 M... IV PRN (06:00)
[2024-06-05] MEDS ORDERED: LACTATED RINGERS 1,000 ML IV SCH (06:00)
[2024-06-05] MEDS ORDERED: TRANEXAMIC ACID 2,000 MG in SODIUM CHLORIDE 0.9% 80 ML IV PRN (06:00)
[2024-06-05] MEDS ORDERED: NITROGLYCERIN-D5W PMX 25 MG/250 ML BTL IV PRN (06:00)
[2024-06-05] MEDS ORDERED: PROTAMINE SULFATE 250 MG in EMPTY BAG 1 BAG IV PRN (06:00)
[2024-06-05] MEDS ORDERED: CLEVIDIPINE BUTYRATE 25 MG in EMPTY BAG 1 BAG IV PRN (06:00)
[2024-06-05] MEDS ORDERED: ceFAZolin 2 GM in DEXTROSE 5% IN WATER 50 ML IVPB ONE (06:00)
[2024-06-05] MEDS ORDERED: INSULIN REGULAR 100 UNIT in SODIUM CHLORIDE 0.9% 100 ML IV PRN (06:00)
[2024-06-05] MEDS ORDERED: SODIUM CHLORIDE 0.9% 500 ML 500 ML INTRAARTER PRN (06:00)
[2024-06-05] MEDS: ASPIRIN 325 MG TAB PO ONE (06:15)
[2024-06-05] MEDS: CLOPIDOGREL 75 MG TAB PO ONE (06:18)
[2024-06-05] MEDS: ATORVASTATIN 10 MG TAB PO ONE (06:18)
[2024-06-05] MEDS: METOPROLOL TARTRATE 25 MG TAB PO ONE (06:18)
[2024-06-05 06:33] LABS: Glucose,Whole Blood 94 mg/dL (70-110)
[2024-06-05] MEDS: IV FLUID CONTINUATION 1,000 ML IV ONE (06:34)
[2024-06-05] MEDS ORDERED: PROPOFOL 10 MG/ML 20 ML VIAL IV ONE (07:40)
[2024-06-05] MEDS ORDERED: LIDOCAINE 1% INJ 10MG/ML (20 ML MDV) ONE (07:40)
[2024-06-05] MEDS ORDERED: ROCURONIUM 10 MG/ML (5 ML VIAL) IV ONE (07:40)
[2024-06-05] MEDS ORDERED: SUCCINYLCHOLINE CHLORIDE 200 MG/10 ML VIAL IV ONE (07:40)
[2024-06-05] MEDS ORDERED: NEOSTIGMINE 1 MG/ML 10 ML VIAL ONE (07:40)
[2024-06-05] MEDS ORDERED: PROTAMINE SULFATE 10 MG/ML 5 ML VIAL ONE (07:40)
[2024-06-05] MEDS ORDERED: ePHEDrine 50 MG/ML 1 ML VIAL ONE (07:40)
[2024-06-05] MEDS ORDERED: HEPARIN SODIUM,PORCINE 10,000 UNIT/ML 1 ML VIAL ONE (07:40)
[2024-06-05] MEDS ORDERED: GLYCOPYRROLATE 0.2 MG/ML 2 ML VIAL ONE (07:40)
[2024-06-05] MEDS ORDERED: fentaNYL (PF) 50 MCG/ML 2 ML AMP ONE (07:40)
[2024-06-05] MEDS: IOPAMIDOL-370 100ML BTL INJ ONE ×2 (08:55→08:59)
[2024-06-05] MEDS ORDERED: HYOSCYAMINE SULFATE 0.125 MG TAB PO PRN (09:08)
[2024-06-05] MEDS ORDERED: NON FORMULARY DRUG (Albuterol Inhaler 90 MCG Puff) INHALATION PRN (09:08)
[2024-06-05] MEDS ORDERED: Magnesium Replacement Protocol 1 EACH MISC MISCELLANE PRN (09:08)
[2024-06-05] MEDS ORDERED: FAMOTIDINE 20 MG TAB PO PRN (09:08)
[2024-06-05] MEDS ORDERED: VALSARTAN 160 MG TAB PO SCH (09:08)
[2024-06-05] MEDS ORDERED: traMADol 50 MG TAB PO PRN (09:08)
[2024-06-05] MEDS ORDERED: ACETAMINOPHEN TAB 325 MG TAB PO PRN (09:08)
[2024-06-05] MEDS ORDERED: FLUTICASONE NASAL 50MCG/SPRAY 16GM BTL EA NOSTRIL PRN (09:08)
[2024-06-05] MEDS ORDERED: ONDANSETRON 4 MG/2 ML VIAL IVP PRN (09:08)
[2024-06-05] MEDS ORDERED: Potassium Replacement Protocol 1 EACH MISC MISCELLANE PRN (09:08)
[2024-06-05] MEDS ORDERED: IPRATROPIUM-ALBUTEROL 3 ML NEB INHALATION PRN (09:08)
[2024-06-05] MEDS ORDERED: CALCIUM GLUCONATE IN NACL 2 GM in SALINE 1 100ML.BAG IVPB PRN (09:08)
[2024-06-05 09:33] LABS: Glucose,Whole Blood 134 mg/dL (70-110)
--- NOTE | 2024-06-05 09:33 | P.PCN ---
Date of Procedure: 06/05/24 Operative Findings: TRANSCATHETER AORITC VALVE REPLACEMENT OPERATIVE REPORT PROCEDURE PERFORMED: 1. Percutaneous Aortic Valve Implantation using a 26 mm Medtronic Evolute valve 2. Transesophageal echocardiography (performed by anesthesia) 3. Ultrasound guided access and repair of bilateral femoral artery access site by Perclose closure device. 4. Placement of temporary pacemaker wire. 5. Aortic root angiography INDICATIONS: 1. 83 year-old with a history of severe symptomatic aortic valve stenosis. The patient was experiencing shortness of breath consistent with NYHA class II PERFORMING PHYSICIANS: 1. Yeyo Gomez MD interventional Cardiology 2. Hollie Yeung DO interventional Cardiology. 3. Sekou Murphy MD, Cardiothoracic Surgeon. SEDATION: General anesthesia provided by anesthesia, see separate note APPROACH: Bilateral femoral artery via percutaneous approach PROCEDURE DESCRIPTION: The patient was discussed at valve clinic with multidisciplinary approach with cardiothoracic surgeon as well as bathroom tiling professional and thought better treated with TAVR. Risks, benefits, and alternatives of the procedure had been explained to the patient who understood the risks and agreed to proceed. After consents were obtained, patient was brought to the transcatheter aortic valve implantation room in the cardiac bundle tier and labeler and general anesthesia was provided by the anesthesiologist (see separate report). Once full body sterile prep was performed, right subclavian venous access was obtained and a temporary pacemaker was screwed in, performed by cardiothoracic surgery. Pacing threshholds were checked and deemed appropriate. Next the right femoral artery waw accessed using a modified Seldinger technique, ultrasound guidance and micropuncture technique. A 6 [place] Rabi sheath was placed in the right femoral artery. Next, a 6-[place]ian pigtail catheter was advanced into the aorta and positioned in the aortic root, aortic root angiography was performed to determine optimal deployment angle. The left femoral artery was accessed using modified Seldinger technique, micropuncture technique and under direct ultrasound guidance. Femoral angiogram was done showing access in the common femoral artery and a 6Fr sheath was placed. Next preclose technique was performed using a two Perclose. Next a 0.035 Safari wire was placed in the Aorta via a pigtail catheter. Next 14 Fr [place] sheath was placed. Next a 6F- AL1 catheter was advanced over a wire to the aortic root. A straight wire was advanced through the catheter and used to cross the severely stenotic valve. The AL1 was then exchanged for a 6Fr pigtail catheter and pressure measurements were obtained. The 0.035 Safari wire was then positioned in the apex. Next a 26 mm Medtronic Evolut was advanced. The valve was then positioned across the aortic valve and confirmed with aortic root angiography. [The valve was initially partially deployed however needed repositioning and therefore was recaptured.] The valve was then deployed in proper position using slow deployment and with rapid pacing in conjuncture with aortic root angiography and MEGAN. The delivery system was withdrawn back into the arch and an aortic root injection in conjunction with MEGAN demonstrated a satisfactory result. There was trivial para valvular leak. There was no evidence of any other significant abnormalities. The preclose Perclose was then deployed in the left femoral artery and hemostasis was achieved with the addition of an 8 [place] Angio-Seal. The right femoral angiogram demonstrated an arteriotomy in the common femoral artery and this was repaired using a 6F angioseal device with complete hemostasis. The temporary venous pacemaker was sutured in place. The patient was then transported to the ICU in hemodynamically stable condition, requiring no pressor support. COMPLICATIONS: None RECOMMENDATIONS: The patient will be monitored in the ICU for hemodynamic and electrical stability. Patient will be on aspirin and Plavix.
--- NOTE | 2024-06-05 09:45 | P.OP ---
Date of Procedure: 06/05/24 Preoperative Diagnosis: Tricuspid calcific aortic stenosis, symptomatic Postoperative Diagnosis: Same Procedure(s) Performed: Percutaneous transfemoral transcatheter aortic valve replacement with 26 mm Medtronic evolute flex plus prosthesis. Right subclavian temporary venous pacemaker wire placement. Implants: 26 mm Medtronic Evolut flex plus aortic valve prosthesis Anesthesia: GETA Surgeon: Sekou Murphy (Cardiovascular surgeon) Business Investor #1: Yeyo Gomez (First olive knocker) Business Investor #2: Adam Yeung Estimated Blood Loss (ml): 15 Pathology: none sent Condition: stable Disposition: PACU Indications for Procedure: 83-year-old female with severe calcific aortic valvular stenosis and progressive dyspnea on exertion. She was initially seen in the high risk valve clinic several months ago but is taken 6 months to get dental clearance. She was scheduled for elective transcatheter aortic valve replacement. Operative Findings: Preoperatively the patient had right bundle branch block and sinus bradycardia with a heart rate in the 40s. There was a severe stenosis across the aortic valve measured intraoperatively. Valve was crossed easily. TAVR valve was deployed at 5 mm depth. On deploying the valve the patient went into complete heart block and required use of the temporary pacer. Following deployment of the valve MEGAN demonstrated no evidence of significant paravalvular leak. The valve was well-expanded. Completion angiography demonstrated patent femoral vessels with no leak. Description of Procedure: Patient was brought to the Manager Of Planning and placed supine on the operating table. General anesthesia was induced. The anterior torso and bilateral groins were sterilely prepped and draped. Bilateral femoral arterial access was obtained under ultrasound guidance. On the left a long 6 [place]an sheath was placed up into the descending thoracic aorta. Through this a pigtail was advanced into the noncoronary sinus of Valsalva. On the right a 7 [place] sheath was placed. 2 Perclose devices were then placed. This was then upsized to an 8 [place] sheath. Right subclavian venous puncture was performed. Guidewire was threaded easily into the right atrium. 7 [place] sheath was placed over this but kinked. This was exchanged for an 8 [place] sheath and a screw-in ventricular lead was advanced alongside the guidewire into the right atrium. Guidewire and sheath were then removed. The lead was manipulated into the inferior wall of the right ventricle and screwed in. Pacing threshold was below 1 V. Lead was secured at the skin with 2-0 silk sutures. Right femoral sheath was exchanged for a 14 [place] sheath over a stiff wire. Patient was systemically heparinized and ACT is maintained to greater than 250 during the procedure. Valve was crossed from the right groin and a pigtail catheter positioned at the apex of the ventricle. Transvalvular gradients were measured. Safari wire was then placed at the apex of the ventricle and the pigtail removed. 26 mm Medtronic evolute flex plus valve was loaded on the back table. It was brought up onto the Manager Of Planning table and checked under fluoroscopy and noted to be loaded correctly. 14 [place] sheath was then exchanged for the valve delivery system. This was advanced through the iliofemoral tree into the aorta up the aorta around the aortic arch and across the aortic valve without difficulty. Root angiography was used to appropriately position the valve. We made several attempts at deploying the valve but were unable to get it to stick at less than about a 5 mm depth. Ultimately we excepted the 5 mm depth and then fully deployed the valve releasing it successfully. After deployment of the valve the patient went into complete heart block. Pacing via the subclavian pacing line was maintained. MEGAN demonstrated excellent expansion of the valve. There was trivial paravalvular leak. Gradients were low. Valve deployment system was removed maintaining the safari wire and the 14 [place] sheath were placed. Heparin was reversed with protamine. 14 7 [place] sheath was removed and the 2 Perclose devices deployed. Good groin hemostasis was obtained bilaterally and a completion angiogram was performed. Patient was awakened and transferred to recovery area in stable condition.
--- NOTE | 2024-06-05 09:47 | P.ANPRN ---
Procedure Note - Anesthesia - Invasive Line Left Arterial Line Time Out Performed: Yes Date of Procedure: 06/05/24 Time of Procedure: 07:15 Location of Patient: PreOp Preparation: Sterile Prep Arterial Line Location: Radial Ultrasound Used: Yes Purpose - Visualization and Identification of Vasculature: Yes Needle Guage: 20 Image Stored and Saved: Yes (Printer not available) Narrative: Invasive line placement per sterile protocol utilized.
--- NOTE | 2024-06-05 09:56 | P.ANPRN ---
Procedure Note - Anesthesia - MEGAN Intraop Pre Bypass MEGAN Intraop - Anesthesia Indication: TAVR Date of Procedure: 06/05/24 Pre-operative Diagnosis: Aortic Stenosis Post-operative Diagnosis: same Surgeon: Sekou Murphy Left Ventricle: EF 50 Ejection Fraction: Normal Regional Wall Motion Abnormalities: None Right Ventricle: Dilated R. Ventricle Function: Hypokinesis Mild Aortic Valve: Pre peak 61 mmHg, Mean 35 mmHg Anatomy: Trileaflet Aortic Stenosis: Severe Aortic Regurgitation: Mild Mitral Stenosis: None Mitral Regurgitation: Trace Tricuspid Stenosis: None Tricuspid Regurgitation: Trace Pulmonic Stenosis: None Pulmonic Regurgitation: Trace R. Atrial Dilation: No R. Atrial PFO: Yes (Large PFO w/ left to right shunt) L. Atrial Dilation: No Aortic Dissection: No Aortic Calcification: Moderate Plural Effusion: None - MEGAN Intraop Post Bypass MEGAN Intraop Post Bypass Procedure Performed: TAVR Left Ventricle: Ef 50% Ejection Fraction: Normal Regional Wall Motion Abnormalities: None R. Ventricle Function: Hypokinesis Mild Aortic Valve: Mild perivalvular leak. Peak 8 mmHg, Mean 4 mmHg Mitral Valve: Unchanged Tricuspid: Unchanged Pulmonic: Unchanged Aortic Dissection: No
[2024-06-05 09:57] LABS: HCT 44.7 % (37.2-46.3); HGB 14.2 g/dL (12.0-15.0); MCH 28.6 pg (27.0-32.0); MCHC 31.8 g/dL (32.0-37.0); MCV 90.1 fL (80.0-97.0); Platelet Count 191 10*3/uL (140-440); RBC 4.96 10*6/uL (4.10-5.20); RDW 15.2 % (11.5-14.5); WBC 7.76 10*3/uL (4.50-10.00)
[2024-06-05] MEDS: TIOTROPIUM 2.5 MCG INHALER INHALATION SCH (10:13)
[2024-06-05 10:14] LABS: African American GFR (CKD) 70 (>60 ml/min/1.73 sqM); Anion Gap 8 mmol/L; Blood Urea Nitrogen 21 mg/dL (7-17); Calcium 8.6 mg/dL (8.4-10.2); Carbon Dioxide 23 mmol/L (22-30); Chloride 106 mmol/L (98-107); Glucose 151 mg/dL (74-99); Non-African American GFR(CKD) 61 (>60 ml/min/1.73 sqM); Potassium 3.9 mmol/L (3.5-5.1); Sodium 137 mmol/L (137-145)
--- NOTE | 2024-06-05 10:18 | XR ---
EXAMINATION TYPE: XR chest 1V portable DATE OF EXAM: 06/05/2024 CLINICAL INDICATION: Female, 83 years old with history of post TAVR, progress study. TECHNIQUE: Single AP portable upright view of the chest is obtained. COMPARISON: Chest CTA from 2019 FINDINGS: There is single lead internal/external pacemaker device terminating over the right ventric le. Reticular interstitial changes bilaterally favor chronic parenchymal fibrosis. No pleural effusio n or pneumothorax seen bilaterally. Cardiac silhouette size upper limits of normal with atherosclerot ic thoracic aorta. Osseous structures are intact. Surgical change at the level of the aortic valve is present. IMPRESSION: No pneumothorax seen. [facility], , 06/05/2024 10:16 AM
[2024-06-05 11:16] VITALS: BMI 25.5
[2024-06-05] MEDS: BENZOCAINE/MENTHOL LOZENG 1 EACH LOZENGE MUCOUS MEM PRN (11:50)
[2024-06-05] MEDS: LACTATED RINGERS 1,000 ML IV SCH (11:51)
[2024-06-05] MEDS: POTASSIUM CHLORIDE 10 MEQ in WATER FOR INJECTION 1 100ML.BAG IVPB SCH (12:35)
[2024-06-05] MEDS: LORATADINE 10 MG TAB PO SCH (13:15)
[2024-06-05] MEDS: methIMAzole 5 MG TAB PO SCH (13:15)
[2024-06-05] MEDS: POTASSIUM BICARBONATE/CIT AC 20 MEQ TABLET.EFF NG-TUBE SCH (13:32)
[2024-06-05] MEDS: traMADol 50 MG TAB PO PRN (15:09)
[2024-06-05] MEDS: ceFAZolin 2 GM in DEXTROSE 5% IN WATER 50 ML IVPB SCH (17:56)
[2024-06-05] MEDS: VALSARTAN 160 MG TAB PO SCH (20:48)
[2024-06-05] MEDS: SENNOSIDES-DOCUSATE SODIUM 1 EACH TAB PO SCH (20:48)
[2024-06-05] MEDS: SYMBICORT 160-4.5 MCG INHALER INHALATION SCH (21:06)
[2024-06-05] MEDS: HEPARIN SODIUM,PORCINE 5,000 UNIT/ML 1 ML VIAL SQ SCH (23:29)
[2024-06-06] MEDS ORDERED: LACTATED RINGERS 1,000 ML IV SCH (00:01)
--- NOTE | 2024-06-06 05:38 | XR ---
EXAMINATION TYPE: XR chest 1V portable DATE OF EXAM: 06/06/2024 CLINICAL INDICATION: Female, 83 years old with history of Post Operative Cardiac Surgery, progress [facility]. TECHNIQUE: Single AP portable upright view of the chest is obtained. COMPARISON: Chest x-ray from one day earlier FINDINGS: There is single lead internal/external pacemaker device terminating over the right ventric le redemonstrated. Reticular interstitial changes bilaterally favor chronic parenchymal fibrosis. No pleural effusion or pneumothorax seen bilaterally. Cardiac silhouette size mildly enlarged with atherosclerotic thoracic aorta. Osseous structures are intact. Surgical change at the level of the aortic valve is present. IMPRESSION: Mild cardiomegaly and chronic parenchymal fibrotic changes redemonstrated. No new acute p ulmonary process. [facility], , 06/06/2024 5:36 AM
[2024-06-06 06:06] LABS: Basophils # (A) 0.05 10*3/uL (0.00-0.10); Basophils % (A) 0.5 %; HGB 15.1 g/dL (12.0-15.0); Lymphocytes # (A) 1.34 10*3/uL (0.90-5.00); Lymphocytes % (A) 13.1 %; MCH 28.7 pg (27.0-32.0); MCHC 31.5 g/dL (32.0-37.0); MCV 91.3 fL (80.0-97.0); Mean Platelet Volume 9.5 fL (9.5-12.2); Monocytes # (A) 1.33 10*3/uL (0.20-1.00); Neutrophils # (A) 7.37 10*3/uL (1.80-7.70); Neutrophils % (A) 72.1 %; Platelet Count 179 10*3/uL (140-440); RBC 5.26 10*6/uL (4.10-5.20); RDW 15.4 % (11.5-14.5); WBC 10.22 10*3/uL (4.50-10.00)
[2024-06-06 06:34] LABS: Ionized Calcium 4.9 mg/dL (4.5-5.3)
[2024-06-06 06:40] LABS: ALT 11 U/L (4-34); AST 28 U/L (14-36); African American GFR (CKD) 55 (>60 ml/min/1.73 sqM); Albumin 3.5 g/dL (3.5-5.0); Alkaline Phosphatase 66 U/L (38-126); Anion Gap 8 mmol/L; Blood Urea Nitrogen 19 mg/dL (7-17); Calcium 9.2 mg/dL (8.4-10.2); Carbon Dioxide 29 mmol/L (22-30); Chloride 99 mmol/L (98-107); Glucose 111 mg/dL (74-99); Magnesium 1.8 mg/dL (1.6-2.3); Non-African American GFR(CKD) 48 (>60 ml/min/1.73 sqM); Potassium 4.7 mmol/L (3.5-5.1); Sodium 136 mmol/L (137-145); Total Bilirubin 0.6 mg/dL (0.2-1.3); Total Protein 6.6 g/dL (6.3-8.2)
[2024-06-06] MEDS ORDERED: MAGNESIUM HYDROXIDE 2,400 MG/30 ML CUP PO PRN (09:00)
[2024-06-06] MEDS ORDERED: bisacodyL 10 MG SUPP RECTAL PRN (09:00)
[2024-06-06] MEDS ORDERED: CLOPIDOGREL 75 MG TAB PO SCH (09:00)
[2024-06-06] MEDS: ASPIRIN 81 MG PO SCH (09:29)
[2024-06-06] MEDS: ATORVASTATIN 40 MG TAB PO SCH (09:30)
[2024-06-06] MEDS ORDERED: MD COMMUNICATION TO PHARMACY 1 EACH MISC PO PRN (11:39)
[2024-06-06] MEDS: traMADol 50 MG TAB PO PRN (12:00)
[2024-06-06] MEDS: FUROSEMIDE 10 MG/ML 2 ML VIAL IV ONE (12:12)
--- NOTE | 2024-06-06 12:51 | CA ---
Transthoracic Echo Report Name: Natasha Barragan Age: 83 Gender: F : 1940 Exam Date: 06/06/2024 08:12 Exam Location: [place] [facility] Ht (in): 66 Wt (lb): 158 Ordering Physician: Yadira Ramey Attending/Referring Phys: [id number], Karoline Stock Worker And Deliverer Katie Muñoz RDCS Procedure CPT: Indications: post TAVR Cardiac Hx: TAVR 06/05/24 Technical Quality: Technically difficult study Contrast 1: Definity Total Dose (mL): 3 Contrast 2: Total Dose (mL): MEASUREMENTS (Male / Female) Normal Values 2D ECHO LV Diastolic Diameter PLAX 3.9 cm 4.2 - 5.9 / 3.9 - 5.3 cm LV Systolic Diameter PLAX 2.6 cm IVS Diastolic Thickness 1.2 cm 0.6 - 1.0 / 0.6 - 0.9 cm LVPW Diastolic Thickness 1.4 cm 0.6 - 1.0 / 0.6 - 0.9 cm LV Relative Wall Thickness 0.7 LVOT Diameter 2.0 cm LV Diastolic Volume MOD BP 83.0 cm??? 67 - 155 / 56 - 104 cm??? LV Systolic Volume MOD BP 26.5 cm??? 22 - 58 / 19 - 49 cm??? LV Ejection Fraction MOD BP 68.1 % >= 55 % LV Cardiac Index MOD BP 2337.3 cm???/min???m??? LV Diastolic Volume MOD 4C 62.2 cm??? LV Systolic Volume MOD 4C 23.6 cm??? LV Ejection Fraction MOD 4C 62.0 % LV Cardiac Index MOD 4C 1596.3 cm???/min???m??? LV Diastolic Length 4C 7.1 cm LV Systolic Length 4C 6.3 cm LV Diastolic Volume MOD 2C 94.7 cm??? LV Systolic Volume MOD 2C 29.3 cm??? LV Ejection Fraction MOD 2C 69.1 % LV Cardiac Index MOD 2C 2704.9 cm???/min???m??? LV Diastolic Length 2C 8.5 cm LV Systolic Length 2C 6.0 cm LA Volume 38.0 cm??? 18 - 58 / 22 - 52 cm??? LA Volume Index 20.7 cm???/m??? 16 - 28 cm???/m??? DOPPLER AV Peak Velocity 166.9 cm/s AV Peak Gradient 11.1 mmHg AV Mean Velocity 117.4 cm/s AV Mean Gradient 6.1 mmHg AV Velocity Time Integral 28.1 cm LVOT Peak Velocity 133.4 cm/s LVOT Peak Gradient 7.1 mmHg LVOT Velocity Time Integral 21.1 cm LVOT Stroke Volume 67.4 cm??? LVOT Stroke Volume Index 37.2 ml/m??? LVOT Cardiac Index 2784.9 cm???/min???m??? AV Area Cont Eq vti 2.4 cm??? AV Area Cont Eq pk 2.6 cm??? MV Peak Velocity 163.5 cm/s MV Peak Gradient 10.7 mmHg MV Mean Velocity 77.6 cm/s MV Mean Gradient 2.9 mmHg MV Velocity Time Integral 32.5 cm MV Area PHT 2.5 cm??? Mitral E Point Velocity 79.9 cm/s Mitral A Point Velocity 129.3 cm/s Mitral E to A Ratio 0.6 MV Deceleration Time 301.0 ms PV Peak Velocity 98.6 cm/s PV Peak Gradient 3.9 mmHg FINDINGS Left Ventricle Left ventricular ejection fraction is estimated at 60-65 %. Mildly increased septal wall thickness. Moderately increased posterior wall thickness. Left ventricular cavity size normal. No obvious regional wall motion abnormalities. Right Ventricle Right ventricular dilatation. Normal right ventricular global systolic function. Unable to estimate the right ventricular systolic pressure. Right Atrium Normal right atrial size. Catheter/pacemaker wire in the right atrial cavity. Left Atrium Normal left atrial size. Mitral Valve Structurally normal mitral valve. No mitral stenosis, regurgitation or prolapse. Aortic Valve Bioprosthetic aortic valve without stenosis with a peak velocity of 1.7 m/s, peak gradient 11 mmHg, mean gradient 6 mmHg, and estimated aortic valve area of 2.4 cm???. No central aortic regurgitation. Trace paravalvular aortic regurgitation. Tricuspid Valve Structurally normal tricuspid valve. No tricuspid stenosis. Trace tricuspid regurgitation. Pulmonic Valve No pulmonic stenosis. No pulmonic regurgitation. Pericardium Trace anterior pericardial effusion. Aorta Normal size aortic root and proximal ascending aorta. CONCLUSIONS Hyperdynamic LV with EF between 60 to 65% Transcatheter aortic valve with a mean gradient of 6 mmHg Trace pericardial effusion Previewed by: Dr. Yeyo Gomez MD (Electronically Signed) Final Date: 06 June 2024 12:50
--- NOTE | 2024-06-06 12:52 | P.PN ---
Subjective Progress Note Date: 06/06/24 Principal diagnosis: Calcified aortic valve with severe symptomatic aortic valve stenosis, NYHA III. History of childhood rheumatic fever, mild diffuse coronary artery disease, hy pertension, hyperlipidemia, PFO, ASD, PAD status post angioplasty to the left SFA, COPD, hyperthyroid, previous tobacco dependence Patient was seen and examined in conjunction with Dr. Gomez. Initially after her TAVR procedure yesterday she was in complete heart block requiring transvenous pacing. That resolved yesterday and overnight she has required no pacing, has been in sinus rhythm with heart rate in the 60s to 70s. Hemodynamically stable. She does complain of shortness of breath and feeling like her skin is burning as well as sore throat. Does not want to go home today. Transthoracic echocardiogram was completed. Labs, x-ray reviewed. Patient has ambulated in the hallway with assistance. No other new concerns. Objective - Vital Signs Vital signs: Vital Signs Temp 97.5 F L 06/06/24 04:00 Pulse 68 06/06/24 11:00 Resp 12 06/06/24 11:00 BP 156/75 06/06/24 11:00 Pulse Ox 88 L 06/06/24 11:00 FiO2 Intake & Output 06/05/24 06/06/24 06/06/24 18:59 06:59 18:59 Intake Total 1430 60 100 Output Total 400 600 300 Balance 1030 -540 -200 Weight 71.9 kg 71.6 kg Intake: IV 700 60 100 Lactated Ringers 1,000 ml 300 10 @ 50 mls/hr IV .Q20H [facility] Rx#:[id number] ceFAZolin 2 gm In 100 50 100 Dextrose 5% in Water 50 ml @ 100 mls/hr IVPB Q8HR [facility] Rx#:[id number] Oral 730 Output: Urine 400 600 300 Other: Voiding Method Bedside Commode Bedside Commode # Voids 0 0 0 # Bowel Movements 1 ABP, PAP, CO, CI - Last Documented Arterial Blood Pressure 150/53 - Exam CONSTITUTIONAL: Appears comfortable, cooperative, no acute distress RESPIRATORY: Lungs sounds diminished with fine crackles in the bases bilaterally. Respirations even, nonlabored. Currently on 2 L nasal cannula with oxygen saturation in the 90s, on room air oxygen saturation 88% CARDIOVASCULAR: S1, S2 present. Regular rate and rhythm, sinus rhythm on telemetry. Palpable peripheral pulses bilaterally. No edema present. No calf pain or tenderness note GASTROINTESTINAL: Abdomen soft, nontender, nondistended. Active bowel sounds present 4 quadrants. Tolerating diet. Positive flatus GENITOURINARY: Continues to void INTEGUMENTARY: Skin is warm and dry NEUROLOGIC: Cranial nerves II through XII intact MUSKULOSKELETAL: Able to move all extremities, strength equal bilaterally PSYCHIATRIC: Alert and oriented to person place and time, appropriate affect, intact judgment and insight - Allied health notes Allied health notes reviewed: nursing - Labs CBC & Chem 7: 06/06/24 05:26 06/06/24 05:26 Labs: Abnormal Lab Results - Last 24 Hours (Table) 06/06/24 06/06/24 Range/Units 05:26 05:26 WBC 10.22 H (4.50-10.00) 10*3/uL RBC 5.26 H (4.10-5.20) 10*6/uL Hgb 15.1 H (12.0-15.0) g/dL Hct 48.0 H (37.2-46.3) % MCHC 31.5 L (32.0-37.0) g/dL Monocytes # 1.33 H (0.20-1.00) 10*3/uL Sodium 136 L (137-145) mmol/L BUN 19 H (7-17) mg/dL Creatinine 1.07 H (0.52-1.04) mg/dL Glucose 111 H (74-99) mg/dL - Imaging and Cardiology Chest x-ray: report reviewed, image reviewed Assessment and Plan Assessment: Calcified aortic valve with severe symptomatic aortic valve stenosis, NYHA III, status post 26 mm Medtronic evolute TAVR History of childhood rheumatic fever Mild diffuse coronary artery disease Hypertension Hyperlipidemia PFO, ASD PAD status post angioplasty to the left SFA COPD Hyperthyroid Previous tobacco dependence Plan: Patient seen with Dr. Gomez Will give 20 mg IV push Lasix x 1 Increase activity, ambulate as tolerated Will keep in the hospital for another 24 hours to monitor, transfer orders placed for 3 S. cardiac stepdown unit Tramadol changed from 100 mg tablet to (2) 50 mg tablets as patient says the 100 mg tablets do not do anything for her Transvenous pacemaker wire removed without incident, patient did not tolerate well as removing tape causes significant pain for her Wean oxygen as tolerated Anticipate discharge to home tomorrow
[2024-06-06] MEDS: cloNIDine HCL 0.2 MG TAB PO STA (16:08)
[2024-06-07 06:12] LABS: HCT 52.1 % (37.2-46.3); HGB 16.5 g/dL (12.0-15.0); MCH 28.6 pg (27.0-32.0); MCHC 31.7 g/dL (32.0-37.0); MCV 90.5 fL (80.0-97.0); Mean Platelet Volume 9.6 fL (9.5-12.2); Platelet Count 160 10*3/uL (140-440); RBC 5.76 10*6/uL (4.10-5.20); RDW 15.7 % (11.5-14.5); WBC 9.76 10*3/uL (4.50-10.00)
[2024-06-07 06:31] LABS: African American GFR (CKD) 56 (>60 ml/min/1.73 sqM); Anion Gap 11 mmol/L; Blood Urea Nitrogen 30 mg/dL (7-17); Calcium 9.4 mg/dL (8.4-10.2); Carbon Dioxide 25 mmol/L (22-30); Chloride 100 mmol/L (98-107); Glucose 106 mg/dL (74-99); Non-African American GFR(CKD) 49 (>60 ml/min/1.73 sqM); Potassium 4.7 mmol/L (3.5-5.1); Sodium 136 mmol/L (137-145)
[2024-06-07] MEDS ORDERED: ceFAZolin 1 GM in SODIUM CHLORIDE 0.9% IRRIG BTL 250 ML IRRIGATION PRN (07:00)
--- NOTE | 2024-06-07 07:49 | XR ---
EXAMINATION TYPE: XR chest 1V portable DATE OF EXAM: 06/07/2024 6:27 AM COMPARISON: Chest radiographs from 06/06/2024. CLINICAL INDICATION: Female, 83 years old with history of Post Operative Cardiac Surgery; [facility] TECHNIQUE: XR chest 1V portable Frontal view of the chest. FINDINGS: Lungs/Pleura: There is no evidence of pleural effusion, focal consolidation, or pneumothorax. Pulmonary vascularity: Unremarkable. Heart/mediastinum: Cardiomediastinal silhouette is unremarkable. Post aortic valve repair changes. A therosclerotic calcifications are seen in the aorta. Pacer lead is no longer visualized. Musculoskeletal: No acute osseous pathology. IMPRESSION: Mild pulmonary vascular prominence pulmonary vascular congestion. Correlate with BNP for congestive h eart failure. [facility], , 06/07/2024 7:46 AM
--- NOTE | 2024-06-07 12:59 | P.PN ---
Subjective Progress Note Date: 06/07/24 Principal diagnosis: Calcified aortic valve with severe symptomatic aortic valve stenosis, NYHA III. History of childhood rheumatic fever, mild diffuse coronary artery disease, hy pertension, hyperlipidemia, PFO, ASD, PAD status post angioplasty to the left SFA, COPD, hyperthyroid, previous tobacco dependence Patient was seen and examined in conjunction with Dr. Gomez. She does complain of shortness of breath and generalized weakness, just not feeling good. Currently in sinus rhythm but did have third degree heart block yesterday evening, as well as Wenkebach a little later. She has been on no AV christina blocking agents. Discussion took place between Dr. Gomez and the patient, recommend permanent pacemaker, risks and benefits were reviewed, patient is agreeable. Labs, x-ray reviewed. Patient ambulated in the hallway yesterday with assistance, but feels too weak today, will consult PT/OT. We did discuss potential need for rehab at discharge, patient adamantly states that she is not going to rehab and she is going home when we discharge her. No other new concer ns. Objective - Vital Signs Vital signs: Vital Signs Temp 98.1 F 06/07/24 11:00 Pulse 78 06/07/24 11:00 Resp 18 06/07/24 11:00 BP 119/75 06/07/24 11:00 Pulse Ox 97 06/07/24 11:00 FiO2 Intake & Output 06/06/24 06/07/24 06/07/24 18:59 06:59 18:59 Intake Total 370 30 256 Output Total 825 650 Balance -455 -620 256 Weight 70.4 kg Intake: IV 120 30 20 Invasive Line 1 10 10 10 Invasive Line 2 10 20 10 ceFAZolin 2 gm In 100 Dextrose 5% in Water 50 ml @ 100 mls/hr IVPB Q8HR [facility] Rx#:[id number] Oral 250 236 Output: Urine 825 650 Other: Voiding Method Bedside Commode Toilet Toilet # Voids 0 ABP, PAP, CO, CI - Last Documented Arterial Blood Pressure 150/53 - Exam CONSTITUTIONAL: Appears upset, states she doesn't feel well RESPIRATORY: Lungs sounds diminished in the bases bilaterally. Respirations even, nonlabored. Currently on room air with oxygen saturation 97% CARDIOVASCULAR: S1, S2 present. Regular rate and rhythm, sinus rhythm on telemetry. Palpable peripheral pulses bilaterally. No edema present. No calf pain or tenderness note GASTROINTESTINAL: Abdomen soft, nontender, nondistended. Active bowel sounds present 4 quadrants. Tolerating diet. Positive bowel movement 06/05 GENITOURINARY: Continues to void INTEGUMENTARY: Skin is warm and dry NEUROLOGIC: Cranial nerves II through XII intact MUSKULOSKELETAL: Able to move all extremities, strength equal bilaterally PSYCHIATRIC: Alert and oriented to person place and time, appropriate affect, intact judgment and insight - Allied health notes Allied health notes reviewed: nursing - Labs CBC & Chem 7: 06/07/24 05:41 06/07/24 05:41 Labs: Abnormal Lab Results - Last 24 Hours (Table) 06/07/24 06/07/24 Range/Units 05:41 05:41 RBC 5.76 H (4.10-5.20) 10*6/uL Hgb 16.5 H (12.0-15.0) g/dL Hct 52.1 H (37.2-46.3) % MCHC 31.7 L (32.0-37.0) g/dL Sodium 136 L (137-145) mmol/L BUN 30 H (7-17) mg/dL Creatinine 1.05 H (0.52-1.04) mg/dL Glucose 106 H (74-99) mg/dL - Imaging and Cardiology Chest x-ray: report reviewed, image reviewed Assessment and Plan Assessment: Calcified aortic valve with severe symptomatic aortic valve stenosis, NYHA III, status post 26 mm Medtronic evolute TAVR Complete heart block on no AV christina blocking agents History of childhood rheumatic fever Mild diffuse coronary artery disease Hypertension Hyperlipidemia PFO, ASD PAD status post angioplasty to the left SFA COPD Hyperthyroid Previous tobacco dependence Plan: Patient seen with Dr. Gomez Pt has been n.p.o. except sips of water or medications since midnight, Dr. Gomez recommends permanent pacemaker placement to be completed today Continue current medication regimen Will transfer service to internal medicine with cardiology consult Increase activity, ambulate as tolerated. PT/OT consulted Will monitor daily labs and x-rays
--- NOTE | 2024-06-07 13:21 | P.HPIM ---
History of Present Illness Patient is a pleasant 83-year-old female admitted for severe symptomatic aortic valve stenosis and which she agreed grade 3. Patient had history of rheumatic fever, history of coronary artery disease. Patient had generalized weakness and shortness of breath. Patient underwent TAVR with Medtronic valve. Patient was later found to have complete heart block and was on AV christina agents subsequently received permanent pacemaker. Patient denied any symptoms at this time patient denied any fever chills nausea vomiting abdominal pain dysuria denied any shortness of breath. REVIEW OF SYSTEMS: All other systems are negative except those mentioned in the HPI PHYSICAL EXAMINATION: GENERAL: The patient is alert and oriented x3, not in any acute distress. Well developed, well nourished. HEENT: Pupils are round and equally reacting to light. EOMI. No scleral icterus. No conjunctival pallor. Normocephalic, atraumatic. No pharyngeal erythema. No thyromegaly. CARDIOVASCULAR: S1 and S2 present. No murmurs, rubs, or gallops. PULMONARY: Chest is clear to auscultation, no wheezing or crackles. ABDOMEN: Soft, nontender, nondistended, normoactive bowel sounds. No palpable organomegaly. MUSCULOSKELETAL: No joint swelling or deformity. EXTREMITIES: No cyanosis, clubbing, or pedal edema. NEUROLOGICAL: Gross neurological examination did not reveal any focal deficits. SKIN: No rashes. Assessment and plan -Calcified aortic valve aortic valve stenosis: Status post valve replacement - Complete heart block status post pacemaker placement - Coronary disease - Hypertension - Hyperlipidemia - COPD without any acute exacerbation - Peripheral artery disease with angioplasty.-Leukocytosis reactive without any evidence of infection Plan -Continue with statin, methimazole, tiotropium, valsartan, fluticasone- salmeterol for above-mentioned chronic medical problems. Continue monitoring for 1 more night possibility of discharge tomorrow DVT prophylaxis: Subcutaneous heparin Past Medical History Past Medical History: COPD, GERD/Reflux, Hypertension, Osteoarthritis (OA), Renal Disease, Thyroid Disorder, Vascular Disorder Additional Past Medical History / Comment(s): SOB w/exertion, aortic stenosis, Right kidney stenosis. HISTORY OF "FEET" PROBLEM, BUNIONS, has O2 but doesn't use-"doesn't help", frequent bouts of diverticulitis-none currently, bruises easily History of Any Multi-Drug Resistant Organisms: C-DIFF Date of last positivie culture/infection: APRIL 2018: MDRO Source:: STOOL Past Surgical History: Appendectomy, Bowel Resection, Heart Catheterization, Hysterectomy Additional Past Surgical History / Comment(s): PICC LINE FOR ANTIBIOTICS FOR DIVERTICULITIS. FEET SURGERY (SPURS). low ant resection , vascular surg. on left leg Past Anesthesia/Blood Transfusion Reactions: Postoperative Nausea & Vomiting (PONV) Additional Past Anesthesia/Blood Transfusion Reaction / Comment(s): PONV after hyst but not since Smoking Status: Former smoker - Past Family History Mother Family Medical History: Cancer Brother(s) Family Medical History: Cancer Medications and Allergies Home Medications Medication Instructions Recorded Confirmed Type traMADol HCL [Ultram] 50 - 100 mg PO BID PRN 08/15/18 06/05/24 History Valsartan 160 mg PO BID 09/13/18 06/05/24 History Aspirin 81 mg PO DAILY 05/30/24 06/05/24 History Cetirizine HCl [Zyrtec] 10 mg PO DAILY 05/30/24 05/30/24 History Famotidine [Pepcid] 20 mg PO BID PRN 05/30/24 05/30/24 History Fluticasone Nasal [place] [Flonase 2 spray EA NOSTRIL DAILY PRN 05/30/24 06/05/24 History Nasal [place]] Fluticasone/Umeclidin/Vilanter 1 inhalation INHALATION DAILY 05/30/24 06/05/24 History [Trelegy Ellipta 100-62.5-25] methIMAzole [Tapazole] 5 mg PO MOTUWETHFR 05/30/24 05/30/24 History Albuterol Inhaler [Ventolin Hfa 1 - 2 puff INHALATION Q6H PRN 06/04/24 06/04/24 History Inhaler] Acetaminophen Tab [Tylenol] 650 mg PO Q4HR PRN tab 06/06/24 Rx Sennosides-Docusate Sodium 2 each PO HS PRN tab 06/06/24 Rx [Senokot-S] Allergies Allergy/AdvReac Type Severity Reaction Status Date / Time amlodipine Allergy Rash/Hives Verified 05/30/24 10:45 diltiazem Allergy edema Verified 05/30/24 10:45 lisinopril Allergy lip Verified 05/30/24 10:42 swelling propoxyphene [From Darvon] Allergy Anaphylaxis Verified 05/30/24 10:42 hydralazine AdvReac Nausea Verified 05/30/24 10:45 Physical Exam Vitals: Vital Signs Temp Pulse Pulse Resp BP BP Pulse Ox 06/07/24 11:00 98.1 F 78 18 119/75 97 06/07/24 07:45 97.8 F 74 19 151/91 96 06/07/24 04:00 98.2 F 74 18 158/93 93 L 06/06/24 23:35 98.1 F 52 L 22 155/80 92 L 06/06/24 19:44 98.2 F 54 L 18 143/62 92 L 06/06/24 17:32 138/74 06/06/24 15:50 97.4 F L 81 17 160/82 93 L 06/06/24 14:00 80 14 121/72 06/06/24 13:45 73 23 115/78 93 L Intake and Output 06/06/24 06/07/24 06/07/24 22:59 06:59 14:59 Intake Total 270 10 276 Output Total 650 Balance 270 -640 276 Intake: IV 20 10 40 Invasive Line 1 10 20 Invasive Line 2 10 10 20 Oral 250 236 Output: Urine 650 Other: Voiding Method Bedside Commode Toilet Toilet Weight 70.4 kg Results CBC & Chem 7: 06/07/24 05:41 06/07/24 05:41 Labs: Abnormal Lab Results - Last 24 Hours (Table) 06/07/24 06/07/24 Range/Units 05:41 05:41 RBC 5.76 H (4.10-5.20) 10*6/uL Hgb 16.5 H (12.0-15.0) g/dL Hct 52.1 H (37.2-46.3) % MCHC 31.7 L (32.0-37.0) g/dL Sodium 136 L (137-145) mmol/L BUN 30 H (7-17) mg/dL Creatinine 1.05 H (0.52-1.04) mg/dL Glucose 106 H (74-99) mg/dL Thrombosis Risk Factor Assmnt - Choose All That Apply Each Factor Represents 1 point: Abnormal pulmonary function (COPD) Each Risk Factor Represents 2 Points: Central venous access, Major surgery Each Risk Factor Represents 3 Points: Age 75 years or older Thrombosis Risk Factor Assessment Total Risk Factor Score: 8 Thrombosis Risk Factor Assessment Level: High Risk
[2024-06-07] MEDS ORDERED: SODIUM CHLORIDE 0.9% 1,000 ML IV SCH ×2 (14:00)
[2024-06-07] MEDS: fentaNYL (PF) 50 MCG/ML 2 ML AMP IVP ONE ×2 (15:05→15:44)
[2024-06-07] MEDS: MIDAZOLAM 2 MG/2 ML VIAL IVP ONE ×2 (15:05→15:44)
[2024-06-07] MEDS: IOPAMIDOL-370 100ML BTL INJ ONE (15:05)
[2024-06-07] MEDS: IV FLUID CONTINUATION 500 ML IV ONE (15:29)
[2024-06-07] MEDS: ceFAZolin 2 GM in DEXTROSE 5% IN WATER 50 ML IVPB PRN (15:41)
[2024-06-07] MEDS ORDERED: ACETAMINOPHEN TAB 325 MG TAB PO PRN (16:52)
--- NOTE | 2024-06-07 16:52 | P.PCN ---
Description of Procedure: CARDIOLOGY PROCEDURE NOTE Fur Mixer: Dr. Adam Yeung Procedure performed: Insertion dual chamber permanent pacemaker Site: Left subclavian Indications: 3rd degree heart block, 2nd degree Type 2 heart block Complications: None Blood Loss: Minimal Description of Procedure: After the risks, benefits, and alternatives of the above-mentioned procedure was explained in detail with the patient, informed consent was obtained. The patient was taken to the cardiac catheterization suite where the left subclavian area was sterily prepped and draped in the usual fashion. One percent lidocaine was used to anesthetize the left subclavian area. Twenty milliliters of Isoview 370 contrast was injected into the left antecubital vein to allow for direct visualization of the left subclavian vein under fluoroscopy. A 1.5 inch incision was made utilizing a #15 blade in the left subclavian site. Hemostasis was made complete. Electrocautery along with digital blunt dissection was utilized to dissect to the level of the pectoralis muscle fascia and create a pocket large enough to accommodate the generator. A thin walled micro puncuture needle was used to cannulate the left subclavian vein. A guide-wire was inserted through the needle into the vascular lumen under fluoroscopic guidance. The needle was removed. Another thin walled micr puncture needle was used to again cannulate the left subclavian vein. A guide-wire was inserted through the needle into the vascular lumen under fluoroscopic guidance. The needle was removed and both guide-wires were attached to the field. A venous sheath and dilator were advanced over the guidewire into the vascular lumen under fluoroscopic guidance. The dilator and guidewire were then removed. A right ventricular bipolar lead was inserted into the sheath and advanced under fluoroscopic guidance into the right ventricle under fluoroscopic guidance. Adequate sensing and pacing thr esholds were achieved and the lead was screwed into place in the RV apex. The sheath was then torn away. The lead collar was advanced and anchored into place utilizing #0 silk suture. Next, another venous sheath and dilator were advanced under fluoroscopic guidance into the vascular lumen over the guidewire. After removal of the dilator and guidewire, a right atrial bipolar lead was inserted into this sheath and advanced under fluoroscopic guidance into the right atrium. The lead was positioned into the right atrial appendage. Adequate sensing and pacing thresholds were then achieved and the lead was screwed into place. The sheath was then torn away. The lead collar was advanced and anchored into place utilizing #0 silk suture. The leads were then inserted into the appropriate position into the generator. They were then secured with the setscrew provided. The leads and generator were inserted into the pocket with the leads posterior. The subcutaneous tissue was approximated utilizing #2.0 and 3.0 vicryl in an interrupted stitch fashion. The dermal layer was approximated utilizing #4.0 vicryl. The area was cleansed with sterile saline and dried. A sterile 4x4 dressing was applied and the patient was transferred to the post catheterization holding area in stable and satisfactory condition. The patient tolerated the procedure well. Generator Data Quality Control Analyst: [employer] Brand: [id number] Maru XT DR MRI Model #: W1DR01 Serial#: [id number] Right Atrial Bipolar Lead Data: Type: Active fixation lead Quality Control Analyst: [employer] Model#: 5076-45 Serial Number: [id number] Right Ventricular Bipolar Lead Data: Type: Active fixation lead Quality Control Analyst: [employer] Model #: 5076-52 Serial #: [id number] Stimulation Thresholds: Right atrial bipolar lead pacing and sensing thresholds Voltage: 0.5 Impedance: 532 ohms P-wave sensin.5 mV Right Ventricular bipolar lead pacing and sensing thresholds Pulse Width: 0.4ms Voltage: 0.75 volts Impedance: 589 ohms R-wave sensin mV Parameter Setting: Pacing mode is AAIR<=>DDDR Lower rate 60 bpm Upper rate 130 bpm Impressions: 1. Successful implantation of a dual chamber permanent pacemaker in the left pectoral site. Plan: 1. Routine post procedure care will be instituted as well as outpatient follow- up surveillance.
--- NOTE | 2024-06-07 17:35 | XR ---
EXAMINATION TYPE: XR chest 1V portable DATE OF EXAM: 06/07/2024 5:30 PM COMPARISON: 06/07/2024 earlier exam CLINICAL INDICATION: Female, 83 years old with history of Lead placement check, TECHNIQUE: XR chest 1V portable view(s) obtained. FINDINGS: The heart size is normal. The pulmonary vasculature is stable in appearance. Mild infiltrate may be at the left base. There is interval placement of a 2-lead pacemaker over the left chest. No pneumothorax is evident. Le ads are in typical orientation. IMPRESSION: 1. No pneumothorax post two-week pacemaker. [facility], , 06/07/2024 5:33 PM
[2024-06-07] MEDS: ceFAZolin 2 GM in DEXTROSE 5% IN WATER 50 ML IVPB SCH (21:48)
[2024-06-08 06:02] VITALS: RESP 18; TEMP 98.3
[2024-06-08 06:56] LABS: INR 1.1 (<1.2); Prothrombin Time 11.5 sec (10.0-12.5)
[2024-06-08 07:06] LABS: African American GFR (CKD) 62 (>60 ml/min/1.73 sqM); Anion Gap 6 mmol/L; Blood Urea Nitrogen 32 mg/dL (7-17); Calcium 9.2 mg/dL (8.4-10.2); Carbon Dioxide 30 mmol/L (22-30); Chloride 98 mmol/L (98-107); Glucose 114 mg/dL (74-99); Non-African American GFR(CKD) 54 (>60 ml/min/1.73 sqM); Potassium 5.2 mmol/L (3.5-5.1); Sodium 134 mmol/L (137-145)
--- NOTE | 2024-06-08 11:08 | P.HPIM ---
History of Present Illness Patient is a 65-year-old male admitted after cardiopulmonary resuscitation. Patient had ventricular fibrillation received 3 rounds of defibrillation and epinephrine and downtime was 10 minutes. Patient does have drains intact brainstem function patient is intubated and still sedated patient is on IV amiodarone drip cardiology evaluated the patient patient has elevated troponin which was a second 1 about 2.4. First troponin was negative. Patient also has elevated D-dimer because of which patient will undergo CT angio of the chest to rule out any pulmonary embolism that may have contributed to his cardiopulmonary arrest patient had a CT of the head and neck which did not show any significant abnormality chest x-ray showed appropriate placement of endotracheal tube cardiomegaly without any other significant abnormalities. Patient does have intact brainstem function patient is breathing over the ventilator does have pupillary reflexes. Patient although is on muscle relaxants as he is intubated. Patient is not on any pressor support patient is on IV heparin at this time. REVIEW OF SYSTEMS: All other systems are negative except those mentioned in the HPI PHYSICAL EXAMINATION: GENERAL: Intubated sedated with intact brainstem function. HEENT: Pupils are round and equally reacting to light. EOMI. No scleral icterus. No conjunctival pallor. Normocephalic, atraumatic. No pharyngeal erythema. No thyromegaly. CARDIOVASCULAR: S1 and S2 present. No murmurs, rubs, or gallops. PULMONARY: Chest is clear to auscultation, no wheezing or crackles. ABDOMEN: Soft, nontender, nondistended, normoactive bowel sounds. No palpable organomegaly. MUSCULOSKELETAL: No joint swelling or deformity. EXTREMITIES: No cyanosis, clubbing, or pedal edema. NEUROLOGICAL: As mentioned above SKIN: No rashes. Assessment and plan -Cardiorespiratory arrest status post CPR secondary to ventricular fibrillation for which patient is on amiodarone - Elevated troponins can be secondary to chest compressions but cannot rule out any acute coronary event patient is on IV heparin at this time EKG did not show any acute ST-T wave changes - Possible anoxic encephalopathy although patient has intact brainstem function at this time - Elevated D-dimer will rule out pulmonary embolism patient will undergo CT angio of the chest - Hypertension - Hyperlipidemia - Benign prostatic hypertrophy - For above-mentioned chronic chronic medical problems patient will be on appropriate home medications DVT prophylaxis: On IV heparin at this time Past Medical History Past Medical History: COPD, GERD/Reflux, Hypertension, Osteoarthritis (OA), Renal Disease, Thyroid Disorder, Vascular Disorder Additional Past Medical History / Comment(s): SOB w/exertion, aortic stenosis, Right kidney stenosis. HISTORY OF "FEET" PROBLEM, BUNIONS, has O2 but doesn't use-"doesn't help", frequent bouts of diverticulitis-none currently, bruises easily History of Any Multi-Drug Resistant Organisms: C-DIFF Date of last positivie culture/infection: APRIL 2018: MDRO Source:: STOOL Past Surgical History: Appendectomy, Bowel Resection, Heart Catheterization, Hysterectomy Additional Past Surgical History / Comment(s): PICC LINE FOR ANTIBIOTICS FOR DIVERTICULITIS. FEET SURGERY (SPURS). low ant resection , vascular surg. on left leg Past Anesthesia/Blood Transfusion Reactions: Postoperative Nausea & Vomiting (PONV) Additional Past Anesthesia/Blood Transfusion Reaction / Comment(s): PONV after hyst but not since Smoking Status: Former smoker - Past Family History Mother Family Medical History: Cancer Brother(s) Family Medical History: Cancer Medications and Allergies Home Medications Medication Instructions Recorded Confirmed Type traMADol HCL [Ultram] 50 - 100 mg PO BID PRN 08/15/18 06/05/24 History Valsartan 160 mg PO BID 09/13/18 06/05/24 History Aspirin 81 mg PO DAILY 05/30/24 06/05/24 History Cetirizine HCl [Zyrtec] 10 mg PO DAILY 05/30/24 05/30/24 History Famotidine [Pepcid] 20 mg PO BID PRN 05/30/24 05/30/24 History Fluticasone Nasal [place] [Flonase 2 spray EA NOSTRIL DAILY PRN 05/30/24 06/05/24 History Nasal [place]] Fluticasone/Umeclidin/Vilanter 1 inhalation INHALATION DAILY 05/30/24 06/05/24 History [Trelegy Ellipta 100-62.5-25] methIMAzole [Tapazole] 5 mg PO MOTUWETHFR 05/30/24 05/30/24 History Albuterol Inhaler [Ventolin Hfa 1 - 2 puff INHALATION Q6H PRN 06/04/24 06/04/24 History Inhaler] Acetaminophen Tab [Tylenol] 650 mg PO Q4HR PRN tab 06/06/24 Rx Sennosides-Docusate Sodium 2 each PO HS PRN tab 06/06/24 Rx [Senokot-S] Allergies Allergy/AdvReac Type Severity Reaction Status Date / Time amlodipine Allergy Rash/Hives Verified 05/30/24 10:45 diltiazem Allergy edema Verified 05/30/24 10:45 lisinopril Allergy lip Verified 05/30/24 10:42 swelling propoxyphene [From Darvon] Allergy Anaphylaxis Verified 05/30/24 10:42 hydralazine AdvReac Nausea Verified 05/30/24 10:45 Physical Exam Vitals: Vital Signs Temp Pulse Resp BP Pulse Ox 06/08/24 04:00 98.3 F 69 18 123/70 93 L 06/07/24 23:19 98.2 F 76 24 155/87 90 L 06/07/24 19:47 98.1 F 83 22 156/82 90 L 06/07/24 19:00 70 111/72 06/07/24 18:20 69 125/72 06/07/24 17:50 82 135/82 06/07/24 17:35 17 146/91 94 L 06/07/24 17:20 98.5 F 67 17 157/72 91 L Intake and Output 06/07/24 06/08/24 06/08/24 22:59 06:59 14:59 Intake Total 2110 20 480 Output Total 200 300 Balance 1910 -280 480 Intake: IV 370 20 Invasive Line 1 10 10 Invasive Line 2 10 10 Oral 1740 480 Output: Urine 200 300 Other: Voiding Method Toilet Toilet # Voids 1 # Bowel Movements 1 Weight 71.1 kg Results CBC & Chem 7: 06/07/24 05:41 06/08/24 05:45 Labs: Abnormal Lab Results - Last 24 Hours (Table) 06/08/24 Range/Units 05:45 Sodium 134 L (137-145) mmol/L Potassium 5.2 H (3.5-5.1) mmol/L BUN 32 H (7-17) mg/dL Glucose 114 H (74-99) mg/dL Thrombosis Risk Factor Assmnt - Choose All That Apply Each Factor Represents 1 point: Abnormal pulmonary function (COPD) Each Risk Factor Represents 2 Points: Central venous access, Major surgery Each Risk Factor Represents 3 Points: Age 75 years or older Thrombosis Risk Factor Assessment Total Risk Factor Score: 8 Thrombosis Risk Factor Assessment Level: High Risk
--- NOTE | 2024-06-08 11:31 | P.DS ---
Providers Date of admission: 06/05/24 05:54 Attending physician: Luigi Hopson Consults: 06/03/24 15:58 Consult to Anesthesia Routine Consulting Provider: Anesthesia,Services Consult Reason/Comments: Cardiac Surgery Pre-Op 06/05/24 08:53 Consult Physician Routine Consulting Provider: Sekou Murphy Consult Reason/Comments: post TAVR Do you want consulting provider notified?: Already Contacted 06/07/24 12:41 Consult Physician Routine Consulting Provider: Yeyo Gomez Consult Reason/Comments: cardiology post TAVR Do you want consulting provider notified?: Already Contacted Primary care physician: Xiomy Gonzalez MD Hospital Course: Patient is a pleasant 83-year-old female admitted for severe symptomatic aortic valve stenosis and which she agreed grade 3. Patient had history of rheumatic fever, history of coronary artery disease. Patient had generalized weakness and shortness of breath. Patient underwent TAVR with Medtr[employer] valve. Patient was later found to have complete heart block and was on AV christina agents subsequently received permanent pacemaker. Patient denied any symptoms at this time patient denied any fever chills nausea vomiting abdominal pain dysuria denied any shortness of breath. PHYSICAL EXAMINATION: GENERAL: The patient is alert and oriented x3, not in any acute distress. Well developed, well nourished. HEENT: Pupils are round and equally reacting to light. EOMI. No scleral icterus. No conjunctival pallor. Normocephalic, atraumatic. No pharyngeal erythema. No thyromegaly. CARDIOVASCULAR: S1 and S2 present. No murmurs, rubs, or gallops. PULMONARY: Chest is clear to auscultation, no wheezing or crackles. ABDOMEN: Soft, nontender, nondistended, normoactive bowel sounds. No palpable organomegaly. MUSCULOSKELETAL: No joint swelling or deformity. EXTREMITIES: No cyanosis, clubbing, or pedal edema. NEUROLOGICAL: Gross neurological examination did not reveal any focal deficits. SKIN: No rashes. Assessment and plan -Calcified aortic valve aortic valve stenosis: Status post valve replacement - Complete heart block status post pacemaker placement - Coronary disease - Hypertension - Hyperlipidemia - COPD without any acute exacerbation - Peripheral artery disease with angioplasty. -Leukocytosis reactive without any evidence of infection Plan Patient is clinically doing well will be discharged if cleared by cardiology Patient Condition at Discharge: Stable Plan - Discharge Summary Discharge Rx Participant: No New Discharge Prescriptions: New Sennosides-Docusate Sodium [Senokot-S] 2 each PO HS PRN tab PRN Reason: Constipation Acetaminophen Tab [Tylenol] 650 mg PO Q4HR PRN tab PRN Reason: Fever And/ Or Mild Pain (1-3) Continue traMADol HCL [Ultram] 50 - 100 mg PO BID PRN PRN Reason: Pain Valsartan 160 mg PO BID Aspirin 81 mg PO DAILY Fluticasone Nasal Colmar [Flonase Nasal Colmar] 2 spray EA NOSTRIL DAILY PRN PRN Reason: allergies Cetirizine HCl [Zyrtec] 10 mg PO DAILY Fluticasone/Umeclidin/Vilanter [Trelegy Ellipta 100-62.5-25] 1 inhalation I NHALATION DAILY methIMAzole [Tapazole] 5 mg PO MOTUWETHFR Famotidine [Pepcid] 20 mg PO BID PRN PRN Reason: Heartburn Albuterol Inhaler [Ventolin Hfa Inhaler] 1 - 2 puff INHALATION Q6H PRN PRN Reason: Shortness Of Breath Discontinued Hyoscyamine Sulfate [Levsin] 0.125 mg PO DIRECTED PRN PRN Reason: abdominal spasm Discharge Medication List traMADol HCL [Ultram] 50 - 100 mg PO BID PRN 08/15/18 [History] Valsartan 160 mg PO BID 09/13/18 [History] Aspirin 81 mg PO DAILY 05/30/24 [History] Cetirizine HCl [Zyrtec] 10 mg PO DAILY 05/30/24 [History] Famotidine [Pepcid] 20 mg PO BID PRN 05/30/24 [History] Fluticasone Nasal [place]mar [Flonase Nasal Colmar] 2 spray EA NOSTRIL DAILY PRN 05/30/24 [History] Fluticasone/Umeclidin/Vilanter [Trelegy Ellipta 100-62.5-25] 1 inhalation INHALATION DAILY 05/30/24 [History] methIMAzole [Tapazole] 5 mg PO MOTUWETHFR 05/30/24 [History] Albuterol Inhaler [Ventolin Hfa Inhaler] 1 - 2 puff INHALATION Q6H PRN 06/04/24 [History] Acetaminophen Tab [Tylenol] 650 mg PO Q4HR PRN tab 06/06/24 [Rx] Sennosides-Docusate Sodium [Senokot-S] 2 each PO HS PRN tab 06/06/24 [Rx] Follow up Appointment(s)/Referral(s): Yeyo Gomez MD [STAFF PHYSICIAN] - 06/13/24 10:00 am (Your appointment 06/13/24 is at the main cardiology office for a groin check. You also have a 30-day post TAVR echo and appointment with Dr. Gomez 07/11/2024 at 4 PM at the main office, as well as a 1 year post TAVR echo and appointment with Dr. Gomez 05/13/2025 at 10:30 AM at the main office) [facility] [NON-STAFF] - 07/11/24 3:00 pm (You have a 30-day post TAVR appointment in the valve clinic 07/11/24 at 3 PM prior to your appointment with Dr. Gomez, and a 1 year post TAVR appointment in the valve clinic 05/13/25 at noon after your appointment with Dr. Gomez) Ambulatory/Diagnostic Orders: Basic Metabolic Panel [LAB.AMB] Location: None Selected Basic Metabolic Panel [LAB.AMB] Location: None Selected Complete Blood Count w/diff [LAB.AMB] Location: None Selected Complete Blood Count w/diff [LAB.AMB] Location: None Selected Activity/Diet/Wound Care/Special Instructions: TAVR DISCHARGE INSTRUCTIONS: 1. No driving for 1 week, or until physician gives their ok. 2. No lifting, pushing, or pulling more than 5-10 pounds for 1 week. 3. Hold both groins when you cough or sneeze for the next 2 weeks. Bruising is common, but report increased swelling, pain or fever >101F 4. Shower daily. No pool, hot tub, or bathtub for 1 week 5. No powders, lotions, ointments on incisions. 6. No straining, including for bowel movements. Use stool softner if necessary 7. Stairs are not an issue. Go slowly, using handrail and take 1 step at a time. Ambulate several times daily 8. Continue pain control per as needed orders. 9. Take only the medications listed on your discharge form 10. Eat low salt (limited to 2 grams or 2000 milligrams) daily, avoid adding salt, avoid canned/processed foods 11. Take your weight daily in the morning and record, bring with you to your follow up appointments 12. Keep all follow up appointments. You will need a valve clinic appointment at 30 days and 1 year post procedure for follow up 13. You have been referred to and are expected to begin Cardiac Rehab in approximately 4 weeks. 14. You will need antibiotics prior to any dental work, including cleanings, and any surgeries to prevent Endocarditis (bacterial infection in your heart) For any questions or concerns please call your valve coordinators: Yadira or Scott @ Instructions following a heart rhythm device implant. 1. Keep dressing DRY for 5 DAYS. You may cover the area with Saran or Cling Wrap, prior to a shower. 2. The dressing will be removed in the Device Clinic at [facility]. Absorbable sutures were used to close the wound. 3. Avoid raising the left arm above the shoulder level. 4 week restriction 4. Avoid arm movements, like backscratching, rubbing the head, or pulling on a cord. 4 weeks restriction 5. Gentle range of motion movements of the shoulder, closest to the incision should be performed to avoid a frozen shoulder. (Pendulum exercises of the shoulder) 6. The opposite arm may be used freely. 7. Avoid driving for 7 days. 8. Avoid activities such as golfing, swimming, weed whacking, lifting more than 10 pounds weight, bowling, gymnastics and weight training/lifting. (6 weeks restriction) 9. Activities such as wood chopping with an axe, pull-ups in the gymnasium, power lifting, arc-welding, being close to home induction cooktops will always be a problem. 10. Arm sling is only a reminder not to raise the arm above the head. You do not need to keep the arm completely immobilized. Your free to move the arm and use it and for normal activities. In case of any problems, please call [facility], Eduin You, @ [phone], Attention: Device Clinic Discharge Disposition: HOME SELF-CARE
--- NOTE | 2024-06-08 13:40 | P.PN ---
Subjective HISTORY OF PRESENT ILLNESS: Patient is status post dual-chamber pacemaker implantation yesterday with Dr. Yeung. Patient examined this morning. She is sitting up in the chair. Patient currently denies chest pain or pressure. She denies shortness of breath. She states that she did not sleep well overnight and is feeling tired today. Pacemaker interrogation completed and reviewed by Dr. Hernandez. Bedside telemetry reveals paced rhythm. Vital signs are stable. PHYSICAL EXAM: VITAL SIGNS: Reviewed. GENERAL: Well-developed in no acute distress. NECK: Supple. No JVD or thyromegaly LUNGS: Respirations even and unlabored. Lungs essentially clear to auscultation bilaterally. HEART: Regular rate and rhythm. S1 and S2 heard. Systolic murmur noted. EXTREMITIES: Normal range of motion. No clubbing or cyanosis. Peripheral pulses intact. No lower extremity edema ASSESSMENT: Symptomatic severe aortic stenosis, status post TAVR Complete heart block, status post pacemaker implantation Mild diffuse coronary artery disease Hypertension Hyperlipidemia History of PFO History of PAD with previous angioplasty of left SFA COPD Former nicotine dependence PLAN: Continue current cardiac medications including aspirin, Lipitor, and valsartan Continue to monitor patient for additional 24 hours Anticipate discharge home tomorrow patient remains stable. Nurse practitioner note has been reviewed by physician. Signing provider agrees with the documented findings, assessment, and plan of care documented by [employer] as a scribe. Objective - Vital Signs Vital signs: Vital Signs Temp 98.3 F 06/08/24 04:00 Pulse 72 06/08/24 12:00 Resp 18 06/08/24 12:00 BP 119/82 06/08/24 12:00 Pulse Ox 95 06/08/24 12:00 FiO2 Intake & Output 06/07/24 06/08/24 06/08/24 18:59 06:59 18:59 Intake Total 866 1540 600 Output Total 200 500 Balance 666 1040 600 Weight 71.1 kg Intake: IV 390 40 Invasive Line 1 20 20 Invasive Line 2 20 20 Oral 476 1500 600 Output: Urine 200 500 Other: Voiding Method Toilet Toilet Toilet # Voids 1 # Bowel Movements 1 ABP, PAP, CO, CI - Last Documented Arterial Blood Pressure 150/53 - Labs CBC & Chem 7: 06/07/24 05:41 06/08/24 05:45 Labs: Abnormal Lab Results - Last 24 Hours (Table) 06/08/24 Range/Units 05:45 Sodium 134 L (137-145) mmol/L Potassium 5.2 H (3.5-5.1) mmol/L BUN 32 H (7-17) mg/dL Glucose 114 H (74-99) mg/dL
[2024-06-08] MEDS: traMADol 50 MG TAB PO SCH (16:23)
[2024-06-08 17:51] VITALS: BP 120/78; PULSE 74
== END 2024-06-08 17:50 | disposition home or self-care (01) | DRG 267 ==
LOC: 2ORMAIN 05:54 → 2SICU 09:02 → 3SCARD 06-06 14:17
PROVIDERS: ADMIT Hospitalist; ATTEND Hospitalist
PROC: 5A1223Z Performance of Cardiac Pacing, Continuous (ICD-10-PCS; 2024-06-05)
PROC: B24BZZ4 Ultrasonography of Heart with Aorta, Transesophageal (ICD-10-PCS; 2024-06-05)
PROC: B3101ZZ Fluoroscopy of Thoracic Aorta using Low Osmolar Contrast (ICD-10-PCS; 2024-06-05)
PROC: 02RF38Z Replacement of Aortic Valve with Zooplastic Tissue, Percutaneous Approach (ICD-10-PCS; principal; 2024-06-05 08:00)
PROC: 0JH606Z Insertion of Pacemaker, Dual Chamber into Chest Subcutaneous Tissue and Fascia, Open Approach (ICD-10-PCS; 2024-06-07)
PROC: 02H63JZ Insertion of Pacemaker Lead into Right Atrium, Percutaneous Approach (ICD-10-PCS; 2024-06-07)
PROC: 02HK3JZ Insertion of Pacemaker Lead into Right Ventricle, Percutaneous Approach (ICD-10-PCS; 2024-06-07)
PROC: 3E033RZ Introduction of Antiarrhythmic into Peripheral Vein, Percutaneous Approach (ICD-10-PCS; 2024-06-08)
DX: I35.0 Nonrheumatic aortic (valve) stenosis (principal); Z00.6 Encounter for examination for normal comparison and control in clinical research program; I44.2 Atrioventricular block, complete; J44.9 Chronic obstructive pulmonary disease, unspecified; I10 Essential (primary) hypertension; I73.9 Peripheral vascular disease, unspecified; I35.8 Other nonrheumatic aortic valve disorders; Q21.12 Patent foramen ovale; D72.829 Elevated white blood cell count, unspecified; E78.5 Hyperlipidemia, unspecified; I25.10 Atherosclerotic heart disease of native coronary artery without angina pectoris; R00.1 Bradycardia, unspecified; Z87.891 Personal history of nicotine dependence; Z90.49 Acquired absence of other specified parts of digestive tract; Z79.82 Long term (current) use of aspirin; Z79.51 Long term (current) use of inhaled steroids; Z98.62 Peripheral vascular angioplasty status
CPT/HCPCS: 33210; 33361; 71045; 80048; 80053; 82330; 83735; 85025; 85027; 85610; 86850; 86900; 86901; 93306; 93312; 93320; 93325; 94640